=== PATIENT | female | born 1945 | race Caucasian/White ===

== ENCOUNTER 2018-08-11 10:56 | Inpatient (IN) | payer BC ==
[~2018-08-11] VITALS: Ht 157.5 cm; Wt 76.7 kg
[2018-08-11 10:56] VITALS: BP_SYST 154
--- NOTE | 2018-08-11 11:02 | NUR ---
BROUGHT BACK TO BED #8 AND TRIAGED. REPORT GIVEN TO JAMAAL
--- NOTE | 2018-08-11 11:30 | NUR ---
Pt bib family s/p mech. fall c/o body pain.Pt h/o Stage IV lung CA.
[2018-08-11] MEDS ORDERED: NACL 0.9% 1,000 ML IV ONE (11:45)
--- NOTE | 2018-08-11 12:00 | NUR ---
ER at bedside examining patient.
[2018-08-11 12:21] LABS: ANION GAP 11 (5-15); CALCIUM 9.7 mg/dL (8.4-11.0); CHLORIDE 93 mmol/L (98-107); CREATININE 0.84 mg/dL (0.55-1.30); GLUCOSE 216 mg/dL (70-99); POTASSIUM 4.6 mmol/L (3.5-5.1); SODIUM SERUM 126 mmol/L (136-145); UREA NITROGEN, BLOOD 31 mg/dL (8-21)
[2018-08-11 12:27] LABS: ALANINE AMINOTRANSFERASE 16 U/L (12-78); ALBUMIN 2.1 g/dL (3.4-4.8); ASPARTATE AMINOTRANSFERASE 17 U/L (10-37); TOTAL BILIRUBIN 0.4 mg/dL (0.0-1.0)
[2018-08-11] MEDS ORDERED: MORPHINE 4 MG/ML INJ. SYRINGE IVP ONE (12:45)
[2018-08-11] MEDS ORDERED: ONDANSETRON HCL 4 MG/2 ML VIAL IVP ONE (12:45)
[2018-08-11 12:49] LABS: BASOPHILS % (AUTO) 0.2 % (0.0-2.0); EOSINOPHILS # (AUTO) 0.2 K/uL (0.0-0.4); EOSINOPHILS % (AUTO) 1.5 % (0.0-4.0); HEMATOCRIT 28.5 % (36-48); HEMOGLOBIN 9.1 g/dL (12.0-16.0); LYMPHOCYTES # (AUTO) 0.4 K/uL (1.0-5.5); LYMPHOCYTES % (AUTO) 2.5 % (20.5-51.5); MEAN CORPUSCULAR HEMOGLOBIN 27 pg (27-31); MEAN CORPUSCULAR HGB CONC 32 % (32-36); MEAN CORPUSCULAR VOLUME 83 fL (79.0-98.0); MONOCYTES # (AUTO) 0.7 K/uL (0.0-1.0); MONOCYTES % (AUTO) 4.6 % (1.7-9.3); NEUTROPHILS # (AUTO) 13.9 K/uL (1.8-7.7); NEUTROPHILS % (AUTO) 91.2 % (40.0-70.0); PLATELET COUNT (AUTO) 401 K/uL (130-430); RED BLOOD CELL COUNT(AUTO) 3.44 MIL/uL (4.2-6.2); RED CELL DISTRIBUTION WIDTH 19.2 % (9.0-15.0); WHITE BLOOD COUNT (AUTO) 15.3 K/uL (4.8-10.8)
[2018-08-11] MEDS ORDERED: PIPERACILLIN/TAZO 3.375 GM in NS 50 ML IV ONE (13:00)
--- NOTE | 2018-08-11 13:00 | NUR ---
urine collected via straight cath.
[2018-08-11] MEDS ORDERED: PIPERACILLIN/TAZOBACTAM 3.375 GM/VIAL (ZOSYN) IV ONE (13:57)
[2018-08-11] MEDS: NACL 0.9% 1,000 ML IV SCH (14:00)
--- NOTE | 2018-08-11 14:30 | NUR ---
Pt resting no acute distress, no v/o pain.
--- NOTE | 2018-08-11 15:40 | NUR ---
at bedside examining patient.
--- NOTE | 2018-08-11 16:30 | NUR ---
Patient will be admitted to care of Vin Clarke. Admitted to Telemetry unit. Will go to room 105A. Belongings list completed. Summary report printed. Report will be given at bedside.
--- NOTE | 2018-08-11 16:47 | NUR ---
CONSULTATION PAGED REASON FOR CONSULTATION:LUNG CANCER WAS CONSULT CALLED?Y PERSON WHO WAS NOTIFIED:DAVID CONSULTING PHYSICIAN:MACI ACUÑA ECONOMIST RESEARCH ASSISTANT SPECIALTY:PULMONARY ECONOMIST RESEARCH ASSISTANT PHONE NUMBER:[phone] ORDERING PHYSICIAN:KALIE SINGH
--- NOTE | 2018-08-11 16:52 | NUR ---
ADMISSION NOTE Received patient from ER via tressa, received report from JAMAAL CANALES. Patient admitted with diagnosis of LUNG CA. Patient oriented to hospital routine, call light, toileting and safety-patient verbalized understanding.
[2018-08-11] MEDS ORDERED: VANCOMYCIN HCL 1,250 MG in NS 250 ML IV SCH (17:00)
[2018-08-11 17:09] VITALS: BP_SYST 94
--- NOTE | 2018-08-11 17:31 | NUR ---
Pt states no pain at this time or distress.
[2018-08-11 17:47] LABS: BILIRUBIN,URINE NEGATIVE (NEGATIVE); CLARITY/URINE CLOUDY (CLEAR); COLOR,URINE YELLOW (YELLOW); GLUCOSE,URINE NEGATIVE (NEGATIVE); KETONES,URINE TRACE (NEGATIVE); LEUKOCYTE ESTERASE ,URINE TRACE (NEGATIVE); NITRITE, URINE POSITIVE (NEGATIVE); PH,URINE 5.5 (5.0-8.0); PROTEIN URINE NEGATIVE (NEGATIVE); UROBILINOGEN,URINE 0.2 (0.2-1.0)
[2018-08-11 17:49] LABS: BLOOD, URINE TRACE (NEGATIVE)
[2018-08-11] MEDS ORDERED: BACL10TA PO (17:52)
[2018-08-11] MEDS ORDERED: SERT50TA12 PO (17:52)
[2018-08-11] MEDS ORDERED: ONDA4TAB5 PO (17:52)
[2018-08-11] MEDS ORDERED: HYDR-3606 PO (17:52)
[2018-08-11] MEDS ORDERED: FAMO40TA7 PO (17:52)
[2018-08-11] MEDS ORDERED: DEC4 PO (17:52)
[2018-08-11] MEDS ORDERED: SIMV40TA5 PO (17:52)
[2018-08-11] MEDS ORDERED: UMEC1BLS IH (17:52)
[2018-08-11] MEDS ORDERED: GLU500 PO (17:52)
[2018-08-11] MEDS ORDERED: FENO200C PO (17:52)
[2018-08-11] MEDS ORDERED: FOLI-43 PO (17:52)
[2018-08-11] MEDS ORDERED: LISI-209 PO (17:52)
[2018-08-11] MEDS: PIPERACILLIN/TAZO 3.375/DEX-IS 50 ML IV SCH (17:53)
[2018-08-11 17:56] LABS: BACTERIA,URINE MANY /HPF (None Seen); MUCUS,URINE None Seen /LPF (None Seen); RBC,URINE 0-3 /HPF (0-3)
[2018-08-11] MEDS ORDERED: ONDANSETRON HCL 4 MG/2 ML VIAL IVP PRN (18:15)
[2018-08-11] MEDS ORDERED: IPRATROPIUM/ALBUTEROL SULFATE 3 ML AMPUL.NEB (DUONEB) INH PRN (18:15)
[2018-08-11] MEDS ORDERED: MORPHINE 2 MG/ML INJ. SYRINGE ONE (18:15)
[2018-08-11] MEDS ORDERED: ONDANSETRON HCL 4 MG/2 ML VIAL ONE (18:16)
[2018-08-11 18:51] VITALS: BP_SYST 94
[2018-08-11 20:20] VITALS: BP_SYST 115
--- NOTE | 2018-08-11 20:20 | NUR ---
INITIAL NOTES: BEDSIDE REPORT DONE WITH AM RN. PATIENT IN BED WITH EYES CLOSE,BREATHING PATTERN REGULAR.. PATIENT HAS BEEN DROWSY SINCE ADMISSION BUT DID OPEN HER EYES WHEN CALLED. IVPB INFUSING VIA RT.UPPER CHEST LELAND CATH ..SINUS PALE LOOKING.ROOM AIR.CALL LIGHT WITHIN REACH. BED IN LOW POSITION. WILL MONITOR CLOSELY.
--- NOTE | 2018-08-11 20:25 | NUR ---
SATURATION ON ROOM AIR 88%. OXYGEN 2 LITERS PER N/C ,SAT .WENT UP TO 94%.THIS TIME.
--- NOTE | 2018-08-11 21:20 | NUR ---
URINE INCONTINENT: KRYSTA CARE RENDERED. SKIN INTACT.
--- NOTE | 2018-08-12 00:20 | NUR ---
ROUNDS: AWAKENED. DENIES PAIN .KEPT DRY AND COMFORTABLE.
[2018-08-12 00:22] VITALS: BP_SYST 106
[2018-08-12] MEDS: PIPERACILLIN/TAZO 3.375/DEX-IS 50 ML IV SCH ×4 (00:24→17:38)
--- NOTE | 2018-08-12 01:45 | NUR ---
KRYSTA CARE DONE DUE TO URINE INCONTINENT.
--- NOTE | 2018-08-12 03:00 | NUR ---
ROUNDS: PATIENT CONTINUE TO SLEEP. NO DISTRESS.
--- NOTE | 2018-08-12 05:00 | NUR ---
URINE INCONTINENT. KRYSTA CARE DONE.
--- NOTE | 2018-08-12 06:50 | NUR ---
CLOSING: NO ACUTE CARDIOPULMONARY DISTRESS. ALL NEEDS ATTENDED. ASKED PATIENT 3X IF HAS PAIN ,DENIES PAIN.KRYSTA CARE DONE AND TURNED TO SIDES. IVF INFUSING WELL. MORE AWAKE THIS MORNING.
--- NOTE | 2018-08-12 06:59 | NUR ---
Nutrition Update Jimenez Scale 14 noted. Pt admitted for Lung Cancer, Pneumonia Diet: regular BMI: 31.1 kg/m2 RD to follow per nutrition care standards.
--- NOTE | 2018-08-12 07:30 | NUR ---
AM ROUNDS: PATIENT LYING ON THE BED.AWAKE,ALERT AND ORIENTED X 3-4.PALE LOOKING.IVF ON GOING AT RIGHT CHEST,INTACT. O2 2L/NC,GOOD SATURATION.NO DISTRESS. CONTINUE TO MONITOR.
[2018-08-12] MEDS: PANTOPRAZOLE SODIUM 40 MG TAB PO SCH (07:34)
[2018-08-12 08:21] VITALS: BP_SYST 116
[2018-08-12 08:39] LABS: BASOPHILS % (AUTO) 0.1 % (0.0-2.0); EOSINOPHILS # (AUTO) 0.2 K/uL (0.0-0.4); EOSINOPHILS % (AUTO) 1.7 % (0.0-4.0); HEMATOCRIT 24.6 % (36-48); HEMOGLOBIN 7.8 g/dL (12.0-16.0); LYMPHOCYTES # (AUTO) 0.4 K/uL (1.0-5.5); LYMPHOCYTES % (AUTO) 3.6 % (20.5-51.5); MEAN CORPUSCULAR HEMOGLOBIN 26 pg (27-31); MEAN CORPUSCULAR HGB CONC 32 % (32-36); MEAN CORPUSCULAR VOLUME 83 fL (79.0-98.0); MONOCYTES # (AUTO) 0.7 K/uL (0.0-1.0); MONOCYTES % (AUTO) 6.3 % (1.7-9.3); NEUTROPHILS % (AUTO) 88.3 % (40.0-70.0); PLATELET COUNT (AUTO) 306 K/uL (130-430); RED BLOOD CELL COUNT(AUTO) 2.96 MIL/uL (4.2-6.2); RED CELL DISTRIBUTION WIDTH 18.8 % (9.0-15.0); WHITE BLOOD COUNT (AUTO) 11.4 K/uL (4.8-10.8)
[2018-08-12 08:43] LABS: PROTHROMBIN TIME 10.6 SECS (9.5-12.5)
[2018-08-12 08:52] LABS: ALANINE AMINOTRANSFERASE 11 U/L (12-78); ALBUMIN 1.8 g/dL (3.4-4.8); ANION GAP 9 (5-15); ASPARTATE AMINOTRANSFERASE 12 U/L (10-37); CALCIUM 9.4 mg/dL (8.4-11.0); CHLORIDE 95 mmol/L (98-107); CREATININE 0.69 mg/dL (0.55-1.30); GLUCOSE 134 mg/dL (70-99); POTASSIUM 4.3 mmol/L (3.5-5.1); SODIUM SERUM 128 mmol/L (136-145); TOTAL BILIRUBIN 0.3 mg/dL (0.0-1.0); UREA NITROGEN, BLOOD 19 mg/dL (8-21)
[2018-08-12] MEDS: ENOXAPARIN SODIUM 40 MG/0.4 ML SYRINGE SUBCUT SCH (09:33)
[2018-08-12] MEDS: NACL 0.9% 1,000 ML IV SCH ×2 (10:00→21:01)
--- NOTE | 2018-08-12 10:00 | NUR ---
RADIOLOGY: TO CT CHEST WITHOUT CONTRAST PER JOHANN.
[2018-08-12] MEDS: VANCOMYCIN HCL 1 GM/NS PREMIX 250 ML IV SCH ×2 (10:47→22:17)
[2018-08-12 11:39] VITALS: BP_SYST 122
--- NOTE | 2018-08-12 12:40 | NUR ---
RN ROUNDS: PATIENT IN THE ROOM AND EATING LUNCH DURING ROUNDS. NO NEEDS THIS TIME.CALL LIGHT WITH IN REACH. BED LOCKED AT LOWEST POSITION.
--- NOTE | 2018-08-12 14:45 | NUR ---
Dc tele: Downgrade patient to medical surgical as ordered.
[2018-08-12 15:47] VITALS: BP_SYST 109
--- NOTE | 2018-08-12 16:01 | NUR ---
rn rounds: Resting. No distress.Call light with in reach.Bed locked at lowest position.Bed alarm on.
--- NOTE | 2018-08-12 17:44 | NUR ---
PAGED DR. HAYNES DIALED [phone] SPOKE TO MARIANNE
--- NOTE | 2018-08-12 17:55 | NUR ---
new order: Spoke with Dr. Gray with orders give glucerna boost tid in between meals.
[2018-08-12] MEDS: MORPHINE 2 MG/ML INJ. SYRINGE IVP PRN (18:14)
--- NOTE | 2018-08-12 18:14 | NUR ---
Morphine: Patient c/o lower back pain and due iv Morphine given per request. No adverse reactions noted.
--- NOTE | 2018-08-12 18:30 | NUR ---
Krishan Paged: Called [facility],telephone surveyor Dr. Acosta and left message c/o [facility] exchange re:Ct chest w/o contrast results.
--- NOTE | 2018-08-12 19:16 | NUR ---
Closing Notes: Endorsed to night nurse Carmenza.Comfortable this time. No appetite.Got an order from for supplement per son's request.With orders give Glucerna tid with meals. Call light with in reach.Bed locked at lowest position. Bed alarm on.
--- NOTE | 2018-08-12 20:00 | NUR ---
INITIAL NOTES: PATIENT IN BED AWAKE,ORIENTED X2 FORGETFUL OF TIME.FAMILIES AT BEDSIDE. DISCUSSED PLAN OF CARE TO PATIENT AND FAMILIES.FAMILY ASKED RESULTS OF CT SCAN NOT DISCUSSED DUE TO HIPPA WITH UNDERSTANDING. IVF INFUSING AT 50ML/HR VIA RT. UPPER CHEST POR A CATH. DRESSING DRY AND INTACT.ON O2 2 LITERS PER N/C. INCONTINENT OF URINE. WILL CHANGE SOON. PALE LOOKING, SKIN DRY, WARM AND INTACT.
[2018-08-12 20:30] VITALS: BP_SYST 119
--- NOTE | 2018-08-12 21:35 | NUR ---
HYGIENE WITH KRYSTA CARE DONE DUE TO URINE WIT SMEAR LOOSE STOOL. Z GAURD CREAM APPLIED AFTER. OFFERED PAIN MEDICATION ,BUT REFUSE.
--- NOTE | 2018-08-13 00:15 | NUR ---
DUE IVPB INFUSED. HAS URINE INCONTINENT. KRYSTA SKIN CARE DONE.
[2018-08-13] MEDS: PIPERACILLIN/TAZO 3.375/DEX-IS 50 ML IV SCH ×5 (00:32→23:32)
[2018-08-13 00:36] VITALS: BP_SYST 111
[2018-08-13] MEDS: MORPHINE 2 MG/ML INJ. SYRINGE IVP PRN ×3 (00:45→21:50)
--- NOTE | 2018-08-13 00:45 | NUR ---
PAIN: HAS BACK PAIN ,AGREED TO HAVE MORPHINE 2MG IV GIVEN ORDERED.
--- NOTE | 2018-08-13 03:30 | NUR ---
PATIENT RESTING WITH EYES CLOSE. ON OXYGEN. IVF INFUSING WELL.
--- NOTE | 2018-08-13 05:30 | NUR ---
HAS INCONTINENT OF URINE. HYGIENE WITH KRYSTA CARE RENDERED BY RF TEST TECHNICIAN.
[2018-08-13] MEDS: PANTOPRAZOLE SODIUM 40 MG TAB PO SCH (06:25)
--- NOTE | 2018-08-13 06:55 | NUR ---
CLOSING: NO CARDIOPULMONARY DISTRESS. ALL NEEDS ATTENDED. MORPHINE IV GIVEN FOR BACK PAIN WITH RELIEF. STILL ON OXYGEN. CALL LIGHT WITHIN REACH.
[2018-08-13 07:24] LABS: ALANINE AMINOTRANSFERASE 10 U/L (12-78); ALBUMIN 1.6 g/dL (3.4-4.8); ANION GAP 7 (5-15); ASPARTATE AMINOTRANSFERASE 11 U/L (10-37); CALCIUM 8.9 mg/dL (8.4-11.0); CHLORIDE 95 mmol/L (98-107); CREATININE 0.61 mg/dL (0.55-1.30); GLUCOSE 131 mg/dL (70-99); POTASSIUM 3.9 mmol/L (3.5-5.1); SODIUM SERUM 127 mmol/L (136-145); TOTAL BILIRUBIN 0.3 mg/dL (0.0-1.0); UREA NITROGEN, BLOOD 10 mg/dL (8-21)
[2018-08-13 07:28] LABS: BASOPHILS % (AUTO) 0.2 % (0.0-2.0); EOSINOPHILS # (AUTO) 0.2 K/uL (0.0-0.4); HEMATOCRIT 23.1 % (36-48); HEMOGLOBIN 7.5 g/dL (12.0-16.0); LYMPHOCYTES # (AUTO) 0.4 K/uL (1.0-5.5); LYMPHOCYTES % (AUTO) 4.1 % (20.5-51.5); MEAN CORPUSCULAR HEMOGLOBIN 27 pg (27-31); MEAN CORPUSCULAR HGB CONC 32 % (32-36); MEAN CORPUSCULAR VOLUME 83 fL (79.0-98.0); MONOCYTES # (AUTO) 0.7 K/uL (0.0-1.0); MONOCYTES % (AUTO) 6.5 % (1.7-9.3); NEUTROPHILS # (AUTO) 9.2 K/uL (1.8-7.7); NEUTROPHILS % (AUTO) 87.2 % (40.0-70.0); PLATELET COUNT (AUTO) 279 K/uL (130-430); RED CELL DISTRIBUTION WIDTH 19.2 % (9.0-15.0); WHITE BLOOD COUNT (AUTO) 10.5 K/uL (4.8-10.8)
--- NOTE | 2018-08-13 07:50 | NUR ---
opening note patient is resting in bed, A&Ox4, assessment completed, educated on plan of care and call light system, patient verbalized understanding, central line dressing intact with fluids running with no signs of infiltration, patient complaining of pain, no other needs at this time, fall/safety precautions in place, on 2L nasal cannula.
[2018-08-13] MEDS: ENOXAPARIN SODIUM 40 MG/0.4 ML SYRINGE SUBCUT SCH (08:53)
[2018-08-13 09:30] VITALS: BP_SYST 114
[2018-08-13] MEDS: VANCOMYCIN HCL 1 GM/NS PREMIX 250 ML IV SCH ×2 (09:32→21:43)
--- NOTE | 2018-08-13 10:52 | NUR ---
rounds patient is resting in bed, visitors at the bedside, no signs of distress, offered a cup of ice, no other needs at this time, fall/safety precautions in place.
[2018-08-13 11:41] VITALS: BP_SYST 105
--- NOTE | 2018-08-13 12:55 | NUR ---
rounds patient is resting in bed, patient states that pain is at a tolerable level right now, no signs of distress, no other needs addressed at this time, fall and safety precautions in place.
--- NOTE | 2018-08-13 14:40 | NUR ---
rounds patient is resting in bed, patient states pain is at a tolerable state, no needs addressed at this time, fall/safety precautions.
[2018-08-13 16:06] VITALS: BP_SYST 110
--- NOTE | 2018-08-13 16:29 | NUR ---
rounds patient is resting in bed, eyes closed breathing easy and nonlabored, 2L nasal cannula on, no other needs at this time, fall/safety precautions in place.
--- NOTE | 2018-08-13 16:35 | NUR ---
Dietitian Recommendations * Recommend regular diet, Glucerna BID (ONS provides an additional 700 kcal/day and 20 gm protein/day) LP, RD Please refer to Nutrition Assessment for details.
--- NOTE | 2018-08-13 18:58 | NUR ---
closing note patient is resting in bed, eyes closed breathing easy and nonlabored, 2L nasal cannula on, no other needs at this time, fall/safety precautions in place, no other needs at this time, sons left for the day, will endorse report to noc shift nurse to continue with care, follow up with when next prn pain meds are due, titrate O2 to keep O2 sat above 92, apply z-guard as needed for simon redness.
--- NOTE | 2018-08-13 19:05 | NUR ---
OPENING NOTES: BEDSIDE REPORT DONE. PATIENT IN BED WITH EYES CLOSE. BREATHING PATTERN REGULAR. IVF INFUSING WELL. CALL LIGHT WITHIN REACH. BED IN LOW POSITION. WILL MONITOR CLOSELY.
--- NOTE | 2018-08-13 21:45 | NUR ---
urine incontinent: simon and skin care done. no acute distress.
--- NOTE | 2018-08-13 23:30 | NUR ---
CHECKED IF HAS URINE INCONTINENT, DRY.
[2018-08-13] MEDS: NACL 0.9% 1,000 ML IV SCH (23:32)
[2018-08-14 01:20] VITALS: BP_SYST 122
--- NOTE | 2018-08-14 02:30 | NUR ---
URINE INCONTINENT: UNDER PADS CHANGED. SKIN CARE DONE.
--- NOTE | 2018-08-14 05:30 | NUR ---
HYGIENE: KRYSTA AND SKIN CARE DONE. IVF INFUSING WELL.
[2018-08-14] MEDS: HYDROcodone/ACETAMIN 5-325 MG TAB (NORCO/ VICODIN) PO PRN (05:39)
[2018-08-14] MEDS: PIPERACILLIN/TAZO 3.375/DEX-IS 50 ML IV SCH ×3 (05:40→17:48)
--- NOTE | 2018-08-14 05:40 | NUR ---
PAIN: MEDICATED WITH NORCO PO FOR BACK PAIN LEVEL OF 6/10.
--- NOTE | 2018-08-14 06:45 | NUR ---
CLOSING: ALL NEEDS WERE ATTENDED. NO ACUTE CARDIOPULMONARY DISTRESS. REMAINS TACHYCARDEIC. RR 20 22/MIN. MEDICATED WITH MORPHINE IV AND NORCO PO. FAIRLY CONTROLLED. SKIN CARE WERE DONE.SAFETY MEASURES IMPLEMENTED. CALL LIGHT AT NEAR BY. BED IN LOW POSITION.
[2018-08-14 06:54] LABS: ANION GAP 9 (5-15); CALCIUM 8.7 mg/dL (8.4-11.0); CHLORIDE 96 mmol/L (98-107); CREATININE 0.59 mg/dL (0.55-1.30); GLUCOSE 163 mg/dL (70-99); POTASSIUM 3.8 mmol/L (3.5-5.1); SODIUM SERUM 130 mmol/L (136-145); UREA NITROGEN, BLOOD 9 mg/dL (8-21)
[2018-08-14 07:45] LABS: BASOPHILS # (AUTO) 0.1 K/uL (0.0-0.2); BASOPHILS % (AUTO) 0.5 % (0.0-2.0); EOSINOPHILS # (AUTO) 0.2 K/uL (0.0-0.4); EOSINOPHILS % (AUTO) 1.5 % (0.0-4.0); LYMPHOCYTES # (AUTO) 0.4 K/uL (1.0-5.5); MEAN CORPUSCULAR HEMOGLOBIN 27 pg (27-31); MEAN CORPUSCULAR HGB CONC 33 % (32-36); MEAN CORPUSCULAR VOLUME 83 fL (79.0-98.0); MONOCYTES # (AUTO) 0.6 K/uL (0.0-1.0); MONOCYTES % (AUTO) 5.1 % (1.7-9.3); NEUTROPHILS # (AUTO) 9.8 K/uL (1.8-7.7); NEUTROPHILS % (AUTO) 88.9 % (40.0-70.0); PLATELET COUNT (AUTO) 268 K/uL (130-430); RED BLOOD CELL COUNT(AUTO) 2.58 MIL/uL (4.2-6.2); RED CELL DISTRIBUTION WIDTH 18.9 % (9.0-15.0)
[2018-08-14 07:50] LABS: HEMATOCRIT 21.4 % (36-48)
--- NOTE | 2018-08-14 07:56 | NUR ---
Opening Note received bedside SBAR report from warehouse supervisor 3rd shift RN, patient resting in bed, no acute distress noted, room close to nurses station, educated patient on use of call light and asked to call for assistance, patient verbalized understanding, call light in reach, bed in low and locked position, bed alarm on.
[2018-08-14 08:00] VITALS: BP_SYST 97
[2018-08-14] MEDS: PANTOPRAZOLE SODIUM 40 MG TAB PO SCH (08:35)
[2018-08-14] MEDS: ENOXAPARIN SODIUM 40 MG/0.4 ML SYRINGE SUBCUT SCH (08:36)
[2018-08-14] MEDS: MORPHINE 2 MG/ML INJ. SYRINGE IVP PRN ×2 (08:42→19:18)
--- NOTE | 2018-08-14 08:51 | NUR ---
Physician Rounds Dr. De Leon at bedside examining patient.
--- NOTE | 2018-08-14 08:55 | NUR ---
Physician Rounds Rounds with Dr. Chisholm, informed him of critical lab this morning hct 21.4 and hgb 7.0, no new orders.
--- NOTE | 2018-08-14 08:59 | NUR ---
Nutrition Note Nutrition Consult received for WOUND 08/14/18 0606. Pt was seen and assessed by RD on 08/13/18. Please refer to Nutrition Assessment for details.
--- NOTE | 2018-08-14 10:47 | NUR ---
RN Rounds patient resting in bed, no acute distress noted, patient reports pain is controlled at this time, patient family at bedside.
[2018-08-14] MEDS: VANCOMYCIN HCL 1 GM/NS PREMIX 250 ML IV SCH ×2 (11:04→21:28)
[2018-08-14 12:00] VITALS: BP_SYST 151
--- NOTE | 2018-08-14 12:31 | NUR ---
RN Rounds patient sleeping in bed, respirations even and unlabored, no acute distress noted, patients son Eagle at bedside.
[2018-08-14 13:05] VITALS: BP_SYST 108
--- NOTE | 2018-08-14 14:12 | NUR ---
Physician Rounds Dr. Souza at bedside speaking with patient, Dr. Souza spoke with patients son Eagle on the phone and discussed the plan of care for the patient.
--- NOTE | 2018-08-14 14:24 | NUR ---
Blood Transfusion educated patient on signs and symptoms of blood transfusion reaction, patient verbalized understanding, consent signed and in patients chart, verified blood with second RN, blood transfusion started at this time, patient tolerating well, no acute distress noted, RN at bedside for first 15 minutes of transfusion.
--- NOTE | 2018-08-14 14:40 | NUR ---
Blood transfusion first 15 minutes of blood transfusion completed at this time, patient denies any chest pain, chills, or shortness of breath, no acute distress noted, no signs and symptoms of a transfusion reaction noted, call light in reach.
--- NOTE | 2018-08-14 14:50 | NUR ---
WOUND EVALUATION: Late note for 145 secondary to patient care. Wound Consult received from Dr. Enio Joseph. Thank you, Dr. Joseph, for the consult. Patient received in a Robert Bed with an IsoFlex CESARIO mattress, awake, alert, oriented. Patient is able to turn in bed with minimal assist. Jimenez Score is a 14. Past Medical History: Adeno-Carcinoma Lung Cancer history of recurrent pleural effusions. Recent Labs: WBC 11.0, RBC 2.58, hemoglobin 7.0, hematocrit 21.4, sodium 130, chloride 96, glucose 163, albumin 1.6. Blood culture results 2 in progress. Urine culture results negative. Intrinsic factors that delay wound healing: Adeno-Carcinoma Lung Cancer, hypoalbuminemia. Extrinsic factors that delay wound healing: Decreased mobility. Wound Assessment: 1. Upper Buttock: Intertrigo with non-intact skin, present on admission. Wound bed has 100% dull red tissue, and is in a linear shape, horizontal to fold area. No odor, no drainage. Renuka-wound intact. Wound measures 1.8 cm x 0.4 cm. 2. Left Proximal Posterior Thigh, at fold area of Buttock: Intertrigo with non-intact skin, present on admission. Wound bed has 100% dull red tissue, and is in a linear shape, horizontal to fold area. No odor, no drainage. Renuka-wound intact. Wound measures 0.5 cm x 2.7 cm. Recommend: Cleanse wounds with normal saline. Apply moisture barrier cream to wounds and renuka-wounds. Cover with foam dressing. Perform wound care daily, and as needed for dressing soiling or dislodgement. Also recommend: Reposition patient side to side only every 2 hours with pillow support, and off-load pressure areas with pillows for pressure re-distribution. Offload, elevate and float bilateral heels with pillows. Perform skin care and monitor skin integrity Q shift. Use moisture barrier cream on buttocks and other moisture susceptible areas QID and as needed for soiling. Maintain patient on a low air-loss mattress. Addendum: 08/14/18 at 1619 by Gavin Chávez RN Addendum: Treatment for Wound 2 should be: Recommend: Cleanse wound with normal saline. Apply moisture barrier cream to wound and renuka-wound. Perform site care qid, and as needed for soiling.
--- NOTE | 2018-08-14 15:00 | NUR ---
Wound care educated patient on purpose and procedure for wound care, patient verbalized understanding, wound care completed, patient tolerated well, no acute distress noted, patient denies any pain during or after wound care, see MST shift assessment for wound care.
--- NOTE | 2018-08-14 16:01 | NUR ---
CONSULT REASON FOR CONSULT: LUNG CANCER PERSON I SPOKE WITH: W[facility]ACE CONSULTING PHYSICIAN: DR. ZELAYA VARNISHING UNIT TOOL SETTER PHONE NUMBER: [phone] ORDERING PHYSICIAN: DR. STEVENS Addendum: 08/14/18 at 1657 by Rosa Lewis VT/ SPOKE WITH KYE GONSALEZ
--- NOTE | 2018-08-14 16:03 | NUR ---
RN Rounds patient resting in bed, respirations even and unlabored, no signs or symptoms of blood transfusion reaction, patient denies any chest pain or shortness of breath, no acute distress noted.
--- NOTE | 2018-08-14 16:55 | NUR ---
Blood Transfusion Complete blood transfusion complete at this time, 1 unit of PRBCs infused, patient tolerated well, patient denies any chest pain or shortness of breath, no adverse transfusion reaction noted, no acute distress noted, patient resting in bed, patient reports pain is controlled at this time, patients sons at bedside.
--- NOTE | 2018-08-14 17:54 | NUR ---
RN Rounds patient reports pain is controlled at this time, patients sons at bedside, no acute distress noted, patient requesting jello, provided patient with jello, no additional needs at this time.
--- NOTE | 2018-08-14 18:43 | NUR ---
1L nasal cannula per Dr. Souza, check to see patients O2 Sat off of supplemental O2, patient's O2 Sat 89% on room air, patient placed back on 1L nasal cannula, O2 Sat 93% on 1L nasal cannula, patient denies any shortness of breath, no acute distress noted, patients sons at bedside.
[2018-08-14 19:00] VITALS: BP_SYST 116
--- NOTE | 2018-08-14 19:00 | NUR ---
change of shift.pt.presents quiescent affect;calm.pt's family;sons@bedside.pt.presents central line;rt.svc.intact;patent iv fluids infusing.pt.is incontinent;bladder/bowel.pt.presents o2 therapy:o2 administered@1l/min via nasal cannulae.call light/telephone w/in the reach of the pt.pt.had requested medication;pain.i am to review the emar;med-list.i have apprised the pt./sons.
--- NOTE | 2018-08-14 19:14 | NUR ---
Closing Note bedside SBAR report given to receiving RN, patient resting in bed, respirations even and unlabored, no acute distress noted, IV fluid infusing well, patients son's at bedside, educated patient on use of call light and asked to call for assistance, patient verbalized understanding, call light in reach, bed in low and locked position, bed alarm on, care endorsed to shift foreman RN.
--- NOTE | 2018-08-14 19:20 | NUR ---
i have administered morphine;2mg ivp.via the central line;intact;patent.i am to f/u re;pain medication efficacy per pain mgx protocol.
[2018-08-14 20:00] VITALS: BP_SYST 116
--- NOTE | 2018-08-14 20:00 | NUR ---
pt.assessed.v/s assd.values w/in normal limits.pt.assessed for cleanliness.pt.repositioned.i have assessed the o2-sat%=96%@1l/m,in vioa nasal cannulae.i have assessed the central line;intact;patent;iv fluids infusing.general status stable.respiratory status stabl;e;unlabored call light/telephone placed w/in the reach of the pt.
--- NOTE | 2018-08-14 22:00 | NUR ---
pt.assessed.pt.assessed for cleanliness.pt.repositioned.o2-sat%=96%.nasal cannulae placed correctly.i have assessed the central line;intact;patent.iv fluids infusing.general status stable.respiratory status stable.unlabored call light/telephone placed w/in the reach of the pt.
[2018-08-15] VITALS (7 sets, daily range): BP systolic 106–139
--- NOTE | 2018-08-15 | NUR ---
pt.assessed/v/s assessed;values w/in normal, limits.pt.presents no c/o pain,nausea.pt.assessed for cleanliness. pt.repositioned.central line assessed ;intact;patent;iv fluids infusing.o2-sat%=96%general status stable. respiratory status stable.call light/telephone placed w/in the reach of the pt.
[2018-08-15] MEDS: PIPERACILLIN/TAZO 3.375/DEX-IS 50 ML IV SCH ×5 (00:09→23:30)
--- NOTE | 2018-08-15 02:00 | NUR ---
pt.assessed.pt.assessed for cleanliness.pt.repositioned.i have assessed the central line;intact;patent.iv fluids infusing. general status stable.respiratory status stable;unlabored.call; light/telephone placed w/in the reach of the pt.
--- NOTE | 2018-08-15 04:00 | NUR ---
pt.assessed.pt.assessed for cleanliness.pt.repositioned.pt.presents quiescent affect;calm.somnolent,.i have applied the blanket upon the pt.o20sat%=96%@1l./min via nasal cannulae.general status stable.respiratory.status stable;unlabored.i have assessed the central line;intact;patent;iv fluids infusing.call light/telephone placed w/in the reach of the pt.
[2018-08-15] MEDS: PANTOPRAZOLE SODIUM 40 MG TAB PO SCH (05:07)
--- NOTE | 2018-08-15 06:33 | NUR ---
pt.assessed.pt.presents quiescent affect;calm,somnolent.pt.assessed for cleanliness.pt.repositioned.i have assessed the central line;intact;patent;iv fluids infusing.i have administered the unasyn;abx.ivpb 0600a dose.i have administered protonix;po. general status stable.respiratory status stable.02-sat%=96%call,light/telephone paced w/in the reach of the pt.i inquired if the pt./presents requests,pt.stated no,she is fine,she is not cold;i have applied the blankets upon the pt.i inquired if the pt. presents pain,.pt.stated no she is comfortable.
[2018-08-15 06:34] LABS: BASOPHILS % (AUTO) 0.3 % (0.0-2.0); EOSINOPHILS # (AUTO) 0.2 K/uL (0.0-0.4); EOSINOPHILS % (AUTO) 1.5 % (0.0-4.0); HEMATOCRIT 26.2 % (36-48); HEMOGLOBIN 8.5 g/dL (12.0-16.0); LYMPHOCYTES # (AUTO) 0.4 K/uL (1.0-5.5); LYMPHOCYTES % (AUTO) 4.3 % (20.5-51.5); MEAN CORPUSCULAR HEMOGLOBIN 27 pg (27-31); MEAN CORPUSCULAR HGB CONC 32 % (32-36); MEAN CORPUSCULAR VOLUME 83 fL (79.0-98.0); MONOCYTES # (AUTO) 0.7 K/uL (0.0-1.0); MONOCYTES % (AUTO) 6.2 % (1.7-9.3); NEUTROPHILS # (AUTO) 9.2 K/uL (1.8-7.7); NEUTROPHILS % (AUTO) 87.7 % (40.0-70.0); PLATELET COUNT (AUTO) 296 K/uL (130-430); RED BLOOD CELL COUNT(AUTO) 3.16 MIL/uL (4.2-6.2); RED CELL DISTRIBUTION WIDTH 17.6 % (9.0-15.0); WHITE BLOOD COUNT (AUTO) 10.5 K/uL (4.8-10.8)
[2018-08-15 06:45] LABS: ANION GAP 7 (5-15); CALCIUM 8.7 mg/dL (8.4-11.0); CHLORIDE 97 mmol/L (98-107); GLUCOSE 158 mg/dL (70-99); POTASSIUM 3.8 mmol/L (3.5-5.1); SODIUM SERUM 130 mmol/L (136-145); UREA NITROGEN, BLOOD 9 mg/dL (8-21)
--- NOTE | 2018-08-15 07:19 | NUR ---
Opening Note received bedside SBAR report from overnight associate RN, patient resting in bed, respirations even and unlabored, no acute distress noted, patient reports pain is controlled at this time, room close to nurses station, educated patient on use of call light and asked to call for assistance, patient verbalized understanding, call light in reach, bed in low and locked position, bed alarm on.
[2018-08-15] MEDS: MORPHINE 2 MG/ML INJ. SYRINGE IVP PRN ×2 (08:45→18:47)
--- NOTE | 2018-08-15 09:48 | NUR ---
Home Health: [facility] will provide home health nursing for medication/hydration teaching and wellness check. Per P.T. evaluation, patient is unable to transfer and ambulate and needs mod/max assist with bed mobility but zeyad Guillermo and Milo decline home health physical therapy at this time. Zeyad Guillermo and Milo also met with On[facility] Dr. Souza yesterday who recommended hospice and they declined hospice at this time. Patient will follow up with Oncologist for immunotherapy. Patient will be referred to [facility]. Yissel Kendall, HCP Core Blower Operator [phone]
[2018-08-15] MEDS: ENOXAPARIN SODIUM 40 MG/0.4 ML SYRINGE SUBCUT SCH (09:55)
--- NOTE | 2018-08-15 09:55 | NUR ---
Medication/Education educated patient and patients son Eagle on use and side effects of lovenox, patient and patients son verbalized understanding, patient tolerated medication administration well, no acute distress noted.
[2018-08-15] MEDS: VANCOMYCIN HCL 1 GM/NS PREMIX 250 ML IV SCH ×2 (10:36→20:45)
--- NOTE | 2018-08-15 11:46 | NUR ---
RN Rounds patient resting in bed, patient states that pain is controlled at this time, patient assisted to reposition, patients son at bedside.
--- NOTE | 2018-08-15 12:12 | NUR ---
PT note Attempted to have patient participate with therapy; patient refusing at this time due to low back pain, nursing made aware.
--- NOTE | 2018-08-15 12:34 | NUR ---
Home oxygen/nebs: Home oxygen and nebulizer machine is being arranged. Will have portable oxygen tank delivered at bedside today before discharge, and oxygen concentrator and nebulizer machine to be delivered to home. Provided son's Milo contact number as contact for the [employer] company to coordinate delivery for home. Yissel Kendall, HCP Casing Runner [phone]
--- NOTE | 2018-08-15 13:57 | NUR ---
Wound Care educated patient on purpose and procedure for wound care, patient verbalized understanding, wound care completed, patient tolerated well, patient reports pain is controlled during and after wound care, no acute distress noted, patient repositioned, heels floating.
--- NOTE | 2018-08-15 16:26 | NUR ---
RN Rounds patient resting in bed, respirations even and unlabored, no acute distress noted, patient reports pain is controlled at this time, patients son at the bedside.
--- NOTE | 2018-08-15 17:00 | NUR ---
Spoke with Physician Spoke with Dr. Chisholm, informed him that patients son states that home O2 will not be delivered until later tonight, portable O2 was scheduled to be delivered here to hospital at 1600 and has not arrived, per Dr. Chisholm hold discharge until tomorrow morning.
--- NOTE | 2018-08-15 18:28 | NUR ---
RN Rounds patient resting in bed, respirations even and unlabored on room air, no acute distress noted, patient was able to tolerate glucerna for dinner, denies any nausea, patients son Eagle at bedside.
--- NOTE | 2018-08-15 19:00 | NUR ---
change of shift.pt.presents quiescent affect;calm,family member present.pt.receiving the administration o2-therapy via nasal cannulae.pt.presents central line;iv fluids infusing.pt.presents incontinence bladder/bowel.call light/telephone w/in the reach of the pt.
--- NOTE | 2018-08-15 19:18 | NUR ---
Closing Note bedside SBAR report given to receiving RN, patient resting in bed, respirations even and unlabored on 1L nasal cannula, patient reports pain is controlled at this time, room close to nurses station, patients son Eagle at bedside, educated patient on use of call light and asked to call for assistance, patient verbalized understanding, call light in reach, bed in low and locked position, bed alarm on, care endorsed to night auditor RN.
--- NOTE | 2018-08-15 20:00 | NUR ---
pt.assessed.v/s assessed;values w/in normal limits.pt.receiving the administration;o2 therapy @1l/min via nasal cannulae;hx;copd. pt.presents rt.svc;central line;i have assessed the central line;intact;patent.iv fluids infusing.i inquired if the pt.present requests;pain,nausea.pt.reflected then stated no,she is fine.i have applied blankets;warmed upon the pt.i have provide water to the pt;swallow capacity;function compromised.o2-sat%=94%.general status stable.respiratory status stable;unlabored.call light/ telephone placed w/in the reach of the pt.family@bedside.
--- NOTE | 2018-08-15 21:00 | NUR ---
o2 tank has been delivered to the pt's room.the deliver person stated th son has been presented the demonstration to operate the to2-tank and has signed for the o2-tank.pt.to be d/c home;08/16/18.w/ the o2-therapy.
--- NOTE | 2018-08-15 22:00 | NUR ---
pt.assessed.pt.presents quiescent affect;calm;somnolent.pt.assessed for cleanliness.pt.repositioned.central line assessed;intact;patent;iv fluids infusing.general status stable.respiratory status stable.call light/telephone placed w/in the reach of the pt. i have administered the vancomycin;abx;ivpb:2200p dose.via the central line.
--- NOTE | 2018-08-16 | NUR ---
pt.assessed.v/s assessed;values w/in normal limits.pt.presents no c/o pain,nausea.i have provided water to the pt. swallow capacity;function compromised.pt.assessed for cleanliness;pt.cleaned.pt.repositioned.central line assessed intact;patent.iv fluids infusing.general status stable.respiratory status stable;unlabored.call light/telephone placed w/in the reach of the pt.
--- NOTE | 2018-08-16 02:00 | NUR ---
pt.assessed.pt.assessed for cleanliness.pt.repositioned.central assessed;intact;pt.presents iv fluids.infusing. general status stable.respiratory status stable;unlabored.call light/telephone placed w/in the reach of the pt.
--- NOTE | 2018-08-16 04:00 | NUR ---
pt.assessed.pt.presents quiescent affect;calm,somnolent.pt.assessed for cleanliness.pt.repositioned.i have assessed the central line;intact;patent iv fluids infusing.o2-sat%=94%general status stable.respiratory status stable;unlabored.call light/telephone placed w/in the reach of the pt.
[2018-08-16] MEDS: PANTOPRAZOLE SODIUM 40 MG TAB PO SCH (06:12)
[2018-08-16] MEDS: PIPERACILLIN/TAZO 3.375/DEX-IS 50 ML IV SCH ×2 (06:12→12:56)
--- NOTE | 2018-08-16 06:27 | NUR ---
pt.assessed.pt.assessed for cleanliness.pt.had stated she is cold.i have provided blankets;warmed x2.pt.repositioned.i have administered zosyn;abx;ivpb:0600a dose.general status stable.respiratory status stable;unlabored.i have reapplied the nasal cannulae upon the pt.i have assessed the central line:intact;patent.call light/telephone pace w/in the reach of the pt.
[2018-08-16] MEDS: MORPHINE 2 MG/ML INJ. SYRINGE IVP PRN (06:41)
[2018-08-16 08:00] VITALS: BP_SYST 114
--- NOTE | 2018-08-16 08:00 | NUR ---
opENING NOTES, PT IN BED, PT IS AAOX3, DENIES PAIN. NO SOB, NO RESP DISTRESS. IV ACCESS INTACT AND PATENT. NO REDNESS OR SWELLING IN THE PORTACATH SITE. SAFETY PRECAUTION IN PLACE. CALL LIGHT IN REACH. BED IN LOW POSITION. BED IN LOW POSITION. BED ALARM ON. ENCOURAGED PT TO CALL FOR ASSIST AND PAIN MEDS AND FOR ANY CONCERNS. WILL CONT TO MONITOR PT.
[2018-08-16] MEDS: ENOXAPARIN SODIUM 40 MG/0.4 ML SYRINGE SUBCUT SCH (09:01)
[2018-08-16] MEDS: VANCOMYCIN HCL 1 GM/NS PREMIX 250 ML IV SCH (09:01)
--- NOTE | 2018-08-16 09:45 | NUR ---
PT IN BED, NO SOB, NO C/O PAIN. CALL LIGHT IN REACH. WILL CONT TO MONITOR.
[2018-08-16 11:28] VITALS: BP_SYST 94
--- NOTE | 2018-08-16 11:44 | NUR ---
Pt note Patient and family member refusing therapy at this time. nursing made aware.
--- NOTE | 2018-08-16 11:45 | NUR ---
PT IN BED, NO C/O PAIN. FAMILY AT BEDSIDE. PT AND FAMILY MADE AWARE OF DC ORDER IF U/S OF L ARM IS NEGATIVE.
[2018-08-16] MEDS ORDERED: AMOX-426 PO (12:44)
[2018-08-16] MEDS ORDERED: ALBU2.5V7 INH (12:45)
[2018-08-16] MEDS: HYDROcodone/ACETAMIN 5-325 MG TAB (NORCO/ VICODIN) PO PRN (12:55)
[2018-08-16 13:06] VITALS: BP_SYST 94
--- NOTE | 2018-08-16 13:30 | NUR ---
BRITTON NEEDLE FROM PORTACATH REMOVED ASEPTICALLY AFTER FLUSING WITH 20 CC OF NS. SITE WAS CLEANSE WITH CHLORHEXIDINE AND ALCOHOL WIPES AND ALLOW TO DRY. COVERED WITH STERILE GAUZE AND SECURED WITH LARGE BAND AID. FAMILY AT BEDSIDE.
--- NOTE | 2018-08-16 14:05 | NUR ---
D/C Patient Patient given medication reconciliation form and D/C instructions. Exit Care provided. Patient verbalized understanding. MD discussed with patient the results and treatment provided. Ambulatory with steady gait for discharge to home. Patient in stable condition, ID band removed. IV catheter removed, intact and dressing applied, no active bleeding. Rx for LEVAQUIN, ALBUTEROL given. Patient educated on pain management. All belongings sent with patient.
== END 2018-08-16 14:05 | disposition home health service (06) | DRG 871 ==
LOC: SED 10:56 → STU 13:06 → SMU 08-12 17:27
PROVIDERS: ADMIT Internal Medicine; ATTEND Internal Medicine
PROC: 30233N1 Transfusion of Nonautologous Red Blood Cells into Peripheral Vein, Percutaneous Approach (ICD-10-PCS; principal; 2018-08-14)
DX: A41.9 Sepsis, unspecified organism (principal); J18.9 Pneumonia, unspecified organism; S22.009A Unspecified fracture of unspecified thoracic vertebra, initial encounter for closed fracture; C34.90 Malignant neoplasm of unspecified part of unspecified bronchus or lung; E87.1 Hypo-osmolality and hyponatremia; J90 Pleural effusion, not elsewhere classified; J44.0 Chronic obstructive pulmonary disease with (acute) lower respiratory infection; D64.9 Anemia, unspecified; E11.9 Type 2 diabetes mellitus without complications; W18.30XA Fall on same level, unspecified, initial encounter; E78.5 Hyperlipidemia, unspecified; I10 Essential (primary) hypertension; J44.9 Chronic obstructive pulmonary disease, unspecified; Y93.89 Activity, other specified; Y92.89 Other specified places as the place of occurrence of the external cause; Y99.8 Other external cause status; Z80.3 Family history of malignant neoplasm of breast; Z85.118 Personal history of other malignant neoplasm of bronchus and lung; Z87.891 Personal history of nicotine dependence; Z92.21 Personal history of antineoplastic chemotherapy; Z92.3 Personal history of irradiation
CPT/HCPCS: 36415; 36600; 71045; 71250-TC; 72100-TC; 80048; 80053; 80202-TC; 81000-TC; 82803-TC; 83605; 85025; 85610-TC; 86886; 86900; 86901; 86920; 87040-TC; 87086; 93005; 93971; 96361; 96365; 96375; 97110-GP; 99285; G0378; J1650; J2270; J2405; J2543; J3370; J7030; J7050; P9021

== ENCOUNTER 2018-09-10 20:15 | Inpatient (IN) | payer BC ==
[~2018-09-10] VITALS: Ht 157.5 cm; Wt 76.7 kg
[~2018-09-10 20:15] MED LIST: ALBU2.5V7 INH; AMOX-426 PO; BACL10TA PO; DEC4 PO; FAMO40TA7 PO; FENO200C PO; FOLI-43 PO; GLU500 PO; HYDR-3606 PO; LISI-209 PO; ONDA4TAB5 PO; SERT50TA12 PO; SIMV40TA5 PO; UMEC1BLS IH
[2018-09-10 20:20] VITALS: BP_SYST 87
--- NOTE | 2018-09-10 20:20 | NUR ---
Patient to ER bed 02 to gown for evaluation. Side rails up. Report given to ALLY Rivera.
[2018-09-10] MEDS ORDERED: NACL 0.9% 1,000 ML IV ONE ×2 (20:24→23:15)
--- NOTE | 2018-09-10 20:24 | NUR ---
ER MD Funk at bedside for medical evaluation.
[2018-09-10] MEDS ORDERED: CLINDAMYCIN 300 MG in D5W 50 ML IV ONE (20:30)
[2018-09-10] MEDS ORDERED: NS 1000 ML IV.SOLN IV ONE (20:30)
--- NOTE | 2018-09-10 20:30 | NUR ---
Patient brought into ED due to generalized weakness and hypotension since today. Patient had immune therapy yesterday and sons report that she has been lethargic since then. Patient had a mechanical fall about 1 week ago. Pt has hx of lung cancer. Patient is confused, but able to answer some questions. Patient's oxygen is mid 80s to 90. Patient is on 2L of O2. Will continue to monitor.
--- NOTE | 2018-09-10 20:32 | NUR ---
End of life care decisions discussed with son by Dr. Funk. Opportunity for questions and concerns addressed. Patient's code status is FULL CODE, paperwork completed and placed in chart.
--- NOTE | 2018-09-10 20:33 | NUR ---
Medication reconciliation completed with information provided by son. Any prior medication reconciliation on file was reviewed and corrected.
[2018-09-10 20:44] LABS: WHITE BLOOD COUNT (AUTO) 10.5 K/uL (4.8-10.8)
[2018-09-10] MEDS ORDERED: AMPICILLIN SODIUM/SULBACTAM NA 3 GM in NS 100 ML IV ONE (20:45)
[2018-09-10 20:51] LABS: HEMATOCRIT 30.6 % (36-48); HEMOGLOBIN 10.1 g/dL (12.0-16.0); MEAN CORPUSCULAR HEMOGLOBIN 28 pg (27-31); MEAN CORPUSCULAR HGB CONC 33 % (32-36); MEAN CORPUSCULAR VOLUME 85 fL (79.0-98.0); PLATELET COUNT (AUTO) 399 K/uL (130-430); RED BLOOD CELL COUNT(AUTO) 3.61 MIL/uL (4.2-6.2); RED CELL DISTRIBUTION WIDTH 18.4 % (9.0-15.0)
[2018-09-10] MEDS ORDERED: DEXAMETHASONE SOD PHOSPHATE 10 MG/ML VIAL IVP ONE (21:00)
[2018-09-10 21:07] LABS: INR 1.1 (0.8-1.2); PROTHROMBIN TIME 11.3 SECS (9.5-12.5)
[2018-09-10] MEDS ORDERED: CLINDAMYCIN PHOSPHATE 300 MG/2 ML VIAL ONE (21:10)
[2018-09-10] MEDS ORDERED: AMPICILLIN SODIUM/SULBACTAM NA 3 GM VIAL ONE (21:10)
[2018-09-10] MEDS ORDERED: MORPHINE 4 MG/ML INJ. SYRINGE IVP ONE (21:15)
[2018-09-10 21:32] LABS: ANION GAP 7 (5-15); CALCIUM 9.5 mg/dL (8.4-11.0); CHLORIDE 96 mmol/L (98-107); CREATININE 0.84 mg/dL (0.55-1.30); GLUCOSE 145 mg/dL (70-99); POTASSIUM 5.2 mmol/L (3.5-5.1); SODIUM SERUM 129 mmol/L (136-145); UREA NITROGEN, BLOOD 38 mg/dL (8-21)
[2018-09-10 21:36] LABS: ALANINE AMINOTRANSFERASE 15 U/L (12-78); ALBUMIN 1.8 g/dL (3.4-4.8); AMYLASE 8 U/L (0-100); ASPARTATE AMINOTRANSFERASE 18 U/L (10-37); LIPASE 30 U/L (73-393); TOTAL BILIRUBIN 0.4 mg/dL (0.0-1.0)
--- NOTE | 2018-09-10 21:55 | NUR ---
INSERTED WHITE CATHETER 16 ICELANDIC. PATIENT TOLERATED WELL. Addendum: 09/10/18 at 2332 by [facility] Patient on strict I&O's.
--- NOTE | 2018-09-10 22:10 | NUR ---
# 20 gauge angiocath placed to L AC. Use of asceptic technique. Opsite placed over site. Blood return noted. Flushed with 10 cc of normal saline. No evidence of infiltration noted. Patient tolerated well.
[2018-09-10 22:16] LABS: BILIRUBIN,URINE 1+ (NEGATIVE); BLOOD, URINE NEGATIVE (NEGATIVE); CLARITY/URINE CLEAR (CLEAR); COLOR,URINE YELLOW (YELLOW); GLUCOSE,URINE NEGATIVE (NEGATIVE); KETONES,URINE NEGATIVE (NEGATIVE); LEUKOCYTE ESTERASE ,URINE TRACE (NEGATIVE); NITRITE, URINE NEGATIVE (NEGATIVE); PH,URINE 5.5 (5.0-8.0); PROTEIN URINE NEGATIVE (NEGATIVE); UROBILINOGEN,URINE 0.2 (0.2-1.0)
[2018-09-10 22:42] LABS: BAND % (MANUAL) 12 % (0-6); BASOPHILS % (MANUAL) 0 % (0-2); EOSINOPHILS % (MANUAL) 1 % (0-7); LYMPHOCYTES % (MANUAL) 10 % (20-46); MONOCYTES % (MANUAL) 3 % (0-11)
--- NOTE | 2018-09-10 23:07 | NUR ---
Dr. Do to enter Orders for admission.
[2018-09-10 23:10] LABS: BACTERIA,URINE FEW /HPF (None Seen); MUCUS,URINE 2+ /LPF (None Seen)
[2018-09-10] MEDS ORDERED: ONDANSETRON HCL 4 MG/2 ML VIAL IVP PRN (23:15)
[2018-09-10] MEDS ORDERED: NOREPINEPHRINE BITARTRATE 4 MG in NS 246 ML IV ONE (23:15)
--- NOTE | 2018-09-10 23:22 | NUR ---
Patient will be admitted to care of Dr. Chisholm. Admitted to ICU unit. Belongings list completed. Summary report printed. Report will be given at bedside.
--- NOTE | 2018-09-10 23:23 | NUR ---
charge nurse will call for bed placement
[2018-09-10 23:27] VITALS: BP_SYST 98
--- NOTE | 2018-09-10 23:38 | NUR ---
Patient to ICU 2.
--- NOTE | 2018-09-10 23:45 | NUR ---
Transfer to ICU via ACLS protocol. Licensed nurse present. IV present no signs or symptoms of infiltration.
[2018-09-10 23:50] VITALS: BP_SYST 109
--- NOTE | 2018-09-10 23:50 | NUR ---
ADMISSION ASSESSMENT Pt admitted from ER via gurney and placed in ICU bed 2. Report received from ALLY Hernandez using SBAR format. Pt placed on in room quality assurance monitor body. VSS w/ Sinus Tach seen on the monitor. Pt on 2L O2 via NC tolerating well w/ O2 sats @ 95% and even and unlabored breathing. Pt has a R AC 18g SL and L AC 20g SL, dressing c/d/i, benign and patent. Espinoza cath noted draining urine to gravity. Pt doesn't verbalize any other needs at this time and no signs of acute distress or discomfort noted. Bed is locked and in lowest position, call light w/in reach, will continue to monitor pt.
--- NOTE | 2018-09-10 23:50 | NUR ---
Patient will be admitted to care of Dr. Chisholm. Admitted to ICU unit. Will go to room ICU 2. Belongings list completed. Summary report printed. Report will be given at bedside.
[2018-09-11] VITALS (24 sets, daily range): BP systolic 83–131
[2018-09-11] MEDS ORDERED: VANCOMYCIN HCL 1 GM/NS PREMIX 250 ML IV ONE
--- NOTE | 2018-09-11 | NUR ---
Pt placed on low airloss mattress.
[2018-09-11] MEDS ORDERED: PIPERACILLIN/TAZOBACTAM 3.375 GM/VIAL (ZOSYN) IV ONE (00:21)
--- NOTE | 2018-09-11 00:30 | NUR ---
Pt's two sons let in to see pt. Opportunity for questions, questions answered. Pt son's states they will come back in the morning. Will cont to monitor pt.
[2018-09-11] MEDS: PIPERACILLIN/TAZO 3.375/DEX-IS 50 ML IV SCH ×4 (00:31→17:22)
[2018-09-11] MEDS: NACL 0.9% 1,000 ML IV SCH ×3 (00:31→11:30)
[2018-09-11] MEDS: VANCOMYCIN HCL 1000 MG/VIAL IV ONE ×2 (00:32→00:38)
[2018-09-11] MEDS: ALBUTEROL SULFATE 0.083% 2.5 MG/3 ML VIAL.NEB INH PRN (00:35)
[2018-09-11] MEDS ORDERED: NOREPINEPHRINE 4 MG/4 ML VIAL IV ONE (01:17)
[2018-09-11] MEDS ORDERED: NOREPINEPHRINE BITARTRATE 4 MG in NS 246 ML IV PRN (02:00)
--- NOTE | 2018-09-11 02:20 | NUR ---
Pt went into uncontrolled afib at this time. HR 133. Will cont to monitor.
--- NOTE | 2018-09-11 02:30 | NUR ---
Pictures taken of pt's skin and skin care was performed, pt tolerated, will cont to monitor.
--- NOTE | 2018-09-11 03:20 | NUR ---
PT IN RAPID ATRIA FIB RATE 145-170, BP 97/60 ON 4 MCG LEVOPHED. NOTIFIED .ORDER RECEIVED FOR DIG 0.125 MG IVP .ALSO INFORMED HER OF PTS LOW OUT PUT. NO ORDERS FOR THAT YET.
[2018-09-11] MEDS ORDERED: DIGOXIN 0.5 MG/2 ML AMP ONE (03:47)
[2018-09-11] MEDS ORDERED: DIGOXIN 0.5 MG/2 ML AMP IVP ONE (04:00)
--- NOTE | 2018-09-11 05:20 | NUR ---
Pt converted back to Sinus Tachycardia at this time, will cont to monitor pt.
[2018-09-11 05:25] LABS: BASOPHILS # (AUTO) 0.1 K/uL (0.0-0.2); BASOPHILS % (AUTO) 0.6 % (0.0-2.0); EOSINOPHILS % (AUTO) 0.2 % (0.0-4.0); HEMATOCRIT 28.3 % (36-48); HEMOGLOBIN 8.7 g/dL (12.0-16.0); LYMPHOCYTES # (AUTO) 0.6 K/uL (1.0-5.5); LYMPHOCYTES % (AUTO) 5.5 % (20.5-51.5); MEAN CORPUSCULAR HEMOGLOBIN 26 pg (27-31); MEAN CORPUSCULAR HGB CONC 31 % (32-36); MEAN CORPUSCULAR VOLUME 86 fL (79.0-98.0); MONOCYTES # (AUTO) 0.4 K/uL (0.0-1.0); NEUTROPHILS # (AUTO) 10.1 K/uL (1.8-7.7); PLATELET COUNT (AUTO) 377 K/uL (130-430); RED BLOOD CELL COUNT(AUTO) 3.28 MIL/uL (4.2-6.2); RED CELL DISTRIBUTION WIDTH 18.8 % (9.0-15.0); WHITE BLOOD COUNT (AUTO) 11.2 K/uL (4.8-10.8)
--- NOTE | 2018-09-11 05:48 | NUR ---
ROUNDS Dr. Gray in to examine pt.
--- NOTE | 2018-09-11 06:00 | NUR ---
cardiology consult with called, reason elevated troponin, spoke with robotic machine operator 22 @ exchange.
[2018-09-11 06:07] LABS: ANION GAP 8 (5-15); CHLORIDE 101 mmol/L (98-107); GLUCOSE 238 mg/dL (70-99); SODIUM SERUM 133 mmol/L (136-145)
[2018-09-11 06:08] LABS: ASPARTATE AMINOTRANSFERASE 25 U/L (10-37); CALCIUM 8.9 mg/dL (8.4-11.0); CREATININE 0.87 mg/dL (0.55-1.30); TOTAL BILIRUBIN 0.3 mg/dL (0.0-1.0); UREA NITROGEN, BLOOD 35 mg/dL (8-21)
[2018-09-11 06:09] LABS: ALANINE AMINOTRANSFERASE 17 U/L (12-78); ALBUMIN 1.6 g/dL (3.4-4.8)
[2018-09-11 06:34] LABS: NEUTROPHILS % (AUTO) 89.7 % (40.0-70.0)
--- NOTE | 2018-09-11 06:48 | NUR ---
Nutrition Update Jimenez Scale 13 noted. Pt admitted for Sepsis, Stage IV Lung Cancer Diet: [facility] BMI: 30.2 kg/m2 RD to follow per nutrition care standards.
--- NOTE | 2018-09-11 07:10 | NUR ---
ENDORSEMENT Report given to ALLY Velasco using SBAR format and pt care was endorsed. Pt in bed w/ eyes closed resting comfortably. No signs of acute distress or discomfort noted.
--- NOTE | 2018-09-11 07:13 | NUR ---
Opening Note Received bedside report from Master CANALES for continuation of care. Received patient awake in bed, no signs or symptoms of acute distress noted. Patient denies any pain. Bed locked in lowest position, bed alarm on, and call light within reach.
--- NOTE | 2018-09-11 08:50 | NUR ---
2D ECHO being performed at bedside. No signs or symptoms of acute distress noted.
--- NOTE | 2018-09-11 09:10 | NUR ---
Dr. Chisholm at bedside examining patient. New orders received.
[2018-09-11] MEDS: VANCOMYCIN HCL 750 MG/NS 250 ML IV SCH ×2 (10:02→22:04)
[2018-09-11] MEDS ORDERED: HYDROCORTISONE SOD SUCC 100 MG/2 ML VIAL IVP ONE (11:00)
--- NOTE | 2018-09-11 11:01 | NUR ---
Dr. De Leon at bedside examining patient. New orders received.
--- NOTE | 2018-09-11 11:05 | NUR ---
Patient's sons at bedside. Updated on patient status and plan of care. Opportunity for questions, questions answered clearly and education provided.
[2018-09-11] MEDS: MORPHINE 2 MG/ML INJ. SYRINGE IVP PRN (11:31)
--- NOTE | 2018-09-11 11:35 | NUR ---
Dietitian Recommendations *Recommend [facility] diet w/ Glucerna BID. ONS will provide additional 440 kcal and 20 gm protein daily. *Encourage pt to increase PO intake. Please see Nutritional Assessment for details. DANETTE, RD
--- NOTE | 2018-09-11 15:30 | NUR ---
Dr. Silva at bedside examining patient. New orders received.
--- NOTE | 2018-09-11 15:31 | NUR ---
CHG/Wound Care CHG bath given and wound care performed per wound care guidelines. No signs or symptoms of acute distress noted. Patient tolerated well with minimal discomfort. Bed locked in lowest position, bed alarm on, and call light within reach.
[2018-09-11] MEDS ORDERED: AMIODARONE HCL 200 MG TABLET PO ONE (15:45)
--- NOTE | 2018-09-11 19:02 | NUR ---
Endorsement Endorsed bedside report to oncoming RN using SBAR approach for continuation of care.
--- NOTE | 2018-09-11 20:00 | NUR ---
AWAKE, ALERT, ORIENTED X3. REORIENTED TO CIRCUMSTANCE. DENIES PAIN. BREATH SOUNDS ESSENTIALLY CLEAR. ON O2 AT 2L/MIN/NC. BOWEL SOUNDS (+). PULSES PALPABLE. SKIN W/D. COLOR PALE. HOB UP TO COMFORT. SIDE RAILS UP. CALL LIGHTS WITHIN REACH. WHITE CATH PATENT DRAINING CLEAR ABIMAEL URINE TO GRAVITY. SINUS RHYTHM. LEVOPHED DRIP AT 2 MCG/MIN.
--- NOTE | 2018-09-11 21:15 | NUR ---
BP 120/61, LEVOPHED DRIP TURNED OFF AT THIS TIME.
[2018-09-11] MEDS: HYDROCORTISONE SOD SUCC 100 MG/2 ML VIAL IVP SCH (22:03)
[2018-09-12] VITALS (12 sets, daily range): BP systolic 99–132
--- NOTE | 2018-09-12 | NUR ---
AWAKE.NO DISTRESS NOTED. TURNED.
[2018-09-12] MEDS: PIPERACILLIN/TAZO 3.375/DEX-IS 50 ML IV SCH ×4 (00:17→17:59)
--- NOTE | 2018-09-12 02:00 | NUR ---
AWAKE, RESTING QUIETLY. BOUTS OF CONFUSION. DISORIENTED TO TIME, REORIENTED. "COULD YOU CALL MY BOYS TO COME HERE ?". "I HAVEN'T SEEN MY BOYS." INFORMED THAT HER BOYS WERE JUST HERE VISITING [place] AND IT IS 2 O'CLOCK IN THE MORNING NOW. STATED THAT SHE'LL WAIT FOR 8 O'CLOCK IN THE MORNING THEN. REQUESTED HER SCD'S TO BE REMOVED. SCD'S TAKEN OFF PER ORDER OF DR CORONA.
[2018-09-12] MEDS: ALBUTEROL SULFATE 0.083% 2.5 MG/3 ML VIAL.NEB INH PRN ×3 (03:00→23:35)
--- NOTE | 2018-09-12 03:00 | NUR ---
HAD SOB, DESATURATING AT 87%. PLACED ON 4L/NC. BREATHING TREATMENT GIVEN BY RT. SAT IMPROVED TO 98%.
--- NOTE | 2018-09-12 04:00 | NUR ---
DOZES ON AND OFF. VSS. NO DISTRESS NOTED. REPOSITIONED.
--- NOTE | 2018-09-12 05:00 | NUR ---
AM CARE. WHITE CARE, BACK CARE, KRYSTA-CARE, SKIN CARE, ORAL CARE RENDERED. PARTIAL LINEN CHANGE. DOES NOT ASSIST WITH TURNING. OSMANY PROC WELL.
[2018-09-12 05:38] LABS: HEMATOCRIT 23.8 % (36-48); HEMOGLOBIN 7.6 g/dL (12.0-16.0); MEAN CORPUSCULAR HEMOGLOBIN 27 pg (27-31); MEAN CORPUSCULAR HGB CONC 32 % (32-36); MEAN CORPUSCULAR VOLUME 85 fL (79.0-98.0); PLATELET COUNT (AUTO) 227 K/uL (130-430); RED BLOOD CELL COUNT(AUTO) 2.81 MIL/uL (4.2-6.2); RED CELL DISTRIBUTION WIDTH 18.5 % (9.0-15.0); WHITE BLOOD COUNT (AUTO) 4.9 K/uL (4.8-10.8)
[2018-09-12] MEDS: HYDROCORTISONE SOD SUCC 100 MG/2 ML VIAL IVP SCH ×3 (05:52→22:34)
--- NOTE | 2018-09-12 06:00 | NUR ---
UO ADEQUATE. NO COMPLAINTS OFFERED AT THIS TIME. REMAINS IN GUARDED CONDITION.
[2018-09-12 06:05] LABS: ALANINE AMINOTRANSFERASE 17 U/L (12-78); ALBUMIN 1.4 g/dL (3.4-4.8); ANION GAP 5 (5-15); ASPARTATE AMINOTRANSFERASE 18 U/L (10-37); CALCIUM 8.9 mg/dL (8.4-11.0); CHLORIDE 105 mmol/L (98-107); CREATININE 0.73 mg/dL (0.55-1.30); GLUCOSE 179 mg/dL (70-99); POTASSIUM 3.9 mmol/L (3.5-5.1); SODIUM SERUM 134 mmol/L (136-145); TOTAL BILIRUBIN 0.2 mg/dL (0.0-1.0); UREA NITROGEN, BLOOD 24 mg/dL (8-21)
--- NOTE | 2018-09-12 07:40 | NUR ---
Received patient and report. Patient in bed in no acute distress. Awake and alert. Side rails x 3 up. Call light with in reach.
[2018-09-12 08:14] LABS: BAND % (MANUAL) 5 % (0-6); BASOPHILS % (MANUAL) 0 % (0-2); EOSINOPHILS % (MANUAL) 1 % (0-7); LYMPHOCYTES % (MANUAL) 7 % (20-46); MONOCYTES % (MANUAL) 4 % (0-11)
--- NOTE | 2018-09-12 08:40 | NUR ---
Md Chisholm at bedside. Reported potassium at 3.9 and hemoglobin 7.6/hematocrit 23.8. No new orders. Stated patient may go to tele.
[2018-09-12] MEDS ORDERED: AMIODARONE HCL 200 MG TABLET PO SCH (09:00)
[2018-09-12] MEDS: MORPHINE 2 MG/ML INJ. SYRINGE IVP PRN (10:06)
[2018-09-12] MEDS: NACL 0.9% 1,000 ML IV SCH (11:53)
[2018-09-12] MEDS: VANCOMYCIN HCL 750 MG/NS 250 ML IV SCH ×2 (11:54→22:38)
--- NOTE | 2018-09-12 12:00 | NUR ---
IV site at AC left arm d/c. New IV site left lower arm 20 gauge.
[2018-09-12] MEDS: MORPHINE 4 MG/ML INJ. SYRINGE IVP PRN (14:26)
--- NOTE | 2018-09-12 15:17 | NUR ---
Emergency Medicine Physician Assistant Note BINDERY CHIEF met with patient and sons briefly prior to transfer to tele. Offered support and business card. They plan to take patient home upon discharge and have no questions at this time. Will remain available upon request.
--- NOTE | 2018-09-12 15:44 | NUR ---
Patient received a/ox4, denies pain, assessment complete, on 4L nasal cannula O2 Sat at 97% at this time, IV line is patent and infusing well, Espinoza Catheter in place draining to gravity yellow urine, right subclavian portacath noted, dressing is clean dry and intact, discussed plan of care and educated precision honer light system and to call for any assistance with patient and family, they verbalized understanding, continuing to monitor, bed in lowest position, three side rails up, bed alarm on, call light placed within reach, fall and aspiration precautions in place.
--- NOTE | 2018-09-12 15:44 | NUR ---
Transferred patient to room 119B tele unit. Patient stated happy with care given. In no acute distress. Side rails x 3 up. Call light with in reach. Sons at bedside with patient. Report and endorsement given to nurse Winn. Patient on 4 liters via MT.
[2018-09-12] MEDS ORDERED: NACL 0.9% 1,000 ML IV SCH (16:00)
--- NOTE | 2018-09-12 17:59 | NUR ---
RN rounds patient resting in bed, eating dinner, aspiration precautions in place, patient denies pain, educated on IV antibiotic uses and potential side effects, she verbalized understanding, IV line is patent and infusing well, IV fluid rate adjusted per MD orders, continuing to monitor the patient, bed in lowest position, three side rails up, call light within reach, bed alarm on, fall precautions also in place.
--- NOTE | 2018-09-12 18:29 | NUR ---
Closing note patient resting in bed, finishing dinner, aspiration precautions in place, patient in stable condition, all needs met, will endorse report to NOC shift nurse, IV line is patent and infusing well, bed in lowest position, three side rails up, bed alarm on, call light within reach, fall and aspiration precautions in place.
--- NOTE | 2018-09-12 20:05 | NUR ---
INITIAL NOTES: PATIENT IN BED AWAKE ORIENTED X2 FORGETFUL SPECIFIC PLACE AND TIME.SATURATION ON 4 LITERS OXYGEN 88% RT INITIATED VENTI MASK AT 45 %. O2 SAT UP TO 89-90 % THEN UP TO 50%.RR 28 USING ACCESSORY MUSCLES. VITAL SIGNS TAKEN. GENERALIZED EDEMA. UNABLE TO MOVE LEFT ARM. LEFT LEG MOVES SLOWLY. RT. UPPER LIMBS NORMAL. PT. FOLLOW SIMPLE COMMANDS, SPEECH CLEAR.HR 88-90/MIN SINUS. WHITE IN WITH SMALL DARK ABIMAEL URINE.HOB UP45 DEG. WILL MONITOR CLOSELY.
--- NOTE | 2018-09-12 20:09 | NUR ---
PERSON I SPOKE WITH: Dipika PHYSICIAN FOR ORDERS: Dr. De Leon (Dr. Acosta Assembly Worker) PHONE NUMBER: [phone] Addendum: 09/12/18 at 2013 by Ree Dee [place]/ PHON NUMBER: [phone]
--- NOTE | 2018-09-12 20:20 | NUR ---
LIVE SOURCE OPERATOR REPORTED SVT AT HR 140 TO 155. SEEN PATIENT BP 109/51 HR 145/MIN SAT 90%. WILL MONITOR CLOSELY. MAIL HANDLER ASSISTANT AWARE.
--- NOTE | 2018-09-12 20:30 | NUR ---
PERSON I SPOKE WITH: LEXII CONSULTING PHYSICIAN: DR. ISIDRO (DR. GARAY PSYCHIATRIC ARNP) MANNEQUIN MOLD MAKER PHONE NUMBER: [phone]
--- NOTE | 2018-09-12 20:50 | NUR ---
SPOKE TO DR. MARR ABOUT DECREASED SAT. ON 4 LITERS OF O2. GAVE AN ORDER TO TITRATE O2 TO KEEP SAT>91%.
--- NOTE | 2018-09-12 20:51 | NUR ---
PERSON I SPOKE WITH: LEXII CONSULTING PHYSICIAN: DR. GARAY FOR DR. ISIDRO WALL WASHER PHONE NUMBER: [phone]
[2018-09-12] MEDS ORDERED: AMIODARONE HCL 900 MG in D5W 482 ML IV SCH (21:15)
[2018-09-12] MEDS ORDERED: AMIODARONE HCL 150 MG in D5W 100 ML IV ONE (21:45)
--- NOTE | 2018-09-12 21:50 | NUR ---
KIMBERLI GARZA GAVE A BATH ,TOLERATED WELL. UNDER PADS SATURATED WIT DARK ABIMAEL URINE. 6 ML NS ADDED TO WHITE BALLOON.
--- NOTE | 2018-09-12 22:00 | NUR ---
AMIODARONE IV ORDERS ARE PREPARED. HR CONVERTED TO SINUS TACH 108-115/MIN.
[2018-09-12] MEDS ORDERED: AMIODARONE HCL 150 MG/3ML VIAL ONE (22:09)
--- NOTE | 2018-09-12 22:10 | NUR ---
DR. GARAY, IT AUDITOR CRITICAL CARE REGISTERED NURSE FOR DR. ISIDRO CALLED BACK .MADE AWARE OF SVT AND VITAL SIGNS.WITH ORDERS. BP 99/56 HR 120-133MIN. SAT 97% AT 40% VENTIMASK. DOOR MACHINE OPERATOR AWARE.
--- NOTE | 2018-09-12 22:14 | NUR ---
DR. TANISHA LAI CONSULTING PHYSICIAN: DR. GARAY SPOKE TO LEXII LENDING ADVISOR PHONE NUMBER: [phone]
--- NOTE | 2018-09-12 22:15 | NUR ---
SPOKE TO DR. GARAY ABOUT HR IS ST WITH ORDERS.
[2018-09-12] MEDS ORDERED: AMIODARONE HCL 900 MG/18 ML VIAL IV ONE (22:16)
[2018-09-13 00:30] VITALS: BP_SYST 97
--- NOTE | 2018-09-13 00:30 | NUR ---
O2 DECREASED TO 40% BY RT.
--- NOTE | 2018-09-13 00:35 | NUR ---
UNDER PAD WITH MOD .AMT OF DARK ABIMAEL, POSSIBLE LEAKAGE.
[2018-09-13] MEDS: PIPERACILLIN/TAZO 3.375/DEX-IS 50 ML IV SCH ×4 (00:43→17:57)
--- NOTE | 2018-09-13 01:00 | NUR ---
PATIENT HAS LEFT BUTTOCKS SKIN TEAR ,PHOTO TAKEN .SKIN CARE DONE. COVERED WITH OPTIFOAM.
--- NOTE | 2018-09-13 02:35 | NUR ---
NOTED MUCUS PLUGS TO WHITE CATH. IRRIGATE WITH NS 150ML .MUCUS REMOVED /
[2018-09-13] MEDS: MORPHINE 2 MG/ML INJ. SYRINGE IVP PRN (02:46)
[2018-09-13] MEDS: ALBUTEROL SULFATE 0.083% 2.5 MG/3 ML VIAL.NEB INH PRN (03:48)
--- NOTE | 2018-09-13 05:30 | NUR ---
NO LEAKAGE THIS TIME. HAD 100ML URINE.
[2018-09-13] MEDS: HYDROCORTISONE SOD SUCC 100 MG/2 ML VIAL IVP SCH ×3 (06:22→22:06)
[2018-09-13 06:44] LABS: BASOPHILS % (AUTO) 0.4 % (0.0-2.0); EOSINOPHILS % (AUTO) 0.4 % (0.0-4.0); HEMATOCRIT 23.3 % (36-48); HEMOGLOBIN 7.4 g/dL (12.0-16.0); LYMPHOCYTES # (AUTO) 0.2 K/uL (1.0-5.5); LYMPHOCYTES % (AUTO) 4.6 % (20.5-51.5); MEAN CORPUSCULAR HEMOGLOBIN 27 pg (27-31); MEAN CORPUSCULAR HGB CONC 32 % (32-36); MEAN CORPUSCULAR VOLUME 86 fL (79.0-98.0); MONOCYTES # (AUTO) 0.2 K/uL (0.0-1.0); MONOCYTES % (AUTO) 4.5 % (1.7-9.3); NEUTROPHILS # (AUTO) 4.6 K/uL (1.8-7.7); NEUTROPHILS % (AUTO) 90.1 % (40.0-70.0); PLATELET COUNT (AUTO) 240 K/uL (130-430); RED CELL DISTRIBUTION WIDTH 18.4 % (9.0-15.0); WHITE BLOOD COUNT (AUTO) 5.1 K/uL (4.8-10.8)
--- NOTE | 2018-09-13 07:00 | NUR ---
CLOSING: HEART RATE STILL SINUS TACH ,NO ACUTE DISTRESS. DENIES CHEST PAIN. O2 AT 40% VENTI MASK.SKIN AND ORAL CARE DONE. FULL REPORT GIVEN TO AM ALLY HERNANDEZ.
--- NOTE | 2018-09-13 07:10 | NUR ---
Received report from endorsing RN. Pt states no pain at this time but is seen breathing deeply. Pt states no distress.
[2018-09-13 08:00] VITALS: BP_SYST 130
[2018-09-13 11:26] VITALS: BP_SYST 132
--- NOTE | 2018-09-13 11:45 | NUR ---
WOUND EVALUATION: Late note for 1145 secondary to patient care. Wound Consult received from Dr. Chisholm. Thank you, Dr. Chisholm, for the consult. Patient received in a Robert Bed with an Isoflex CESARIO mattress with low air loss therapy initiated, awake, alert, and oriented. Patient is unable to turn in bed independently. Jimenez Score is a 12. Past Medical History: Stage IV Lung Cancer, Diabetes Mellitus, Hypertension, Hyperlipidemia, COPD, lung cancer surgery, recurrent pleural effusion and postobstructive pneumonia. Recent Labs: WBC 5.1, RBC 2.70, hemoglobin 7.4, hematocrit 23.3, sodium 134, BUNs 24, creatinine 0.73, glucose 179, albumin 1.4. Intrinsic factors that delay wound healing: Stage IV Lung Cancer, Diabetes Mellitus, COPD. Extrinsic factors that delay wound healing: Decreased mobility. Microbiology: Blood culture results 2 in progress. Urine culture results negative. MRSA screen results negative. Wound Assessment: 1. Left Buttock: Shearing injury. Site has 60% white tissue, 40% pink tissue. No odor, no drainage. Periwound has loose residual skin. Surrounding tissue has dark discoloration. Wound measures 0.6 cm x 0.4 cm. 2. Left Buttock, inferior to Wound 1: Shearing injury. Site has 100% dark red tissue. No odor, no drainage. Periwound has loose residual skin. Surrounding tissue has dark discoloration. Wound measures 0.4 cm x 0.3 cm. Recommend: Cleanse wounds with normal saline. Pat dry. Apply moisture barrier cream to simon-wound. Apply Hydrogel to any portion of wounds not covered by moisture barrier cream. Cover with foam dressing. Perform wound care daily, and as needed for dressing soiling or dislodgement. Also recommend: Encourage and assist patient with repositioning side to side only every 2 hours with pillow support, and off-load pressure areas with pillows for pressure re-distribution (place one pillow under her back and one pillow underneath pelvis, ensuring that buttock area floats, and you can place your hand easily underneath the buttock). Offload, elevate and float bilateral heels with one pillow lengthwise under each extremity at all times. Perform skin care and monitor skin integrity Q shift. Use moisture barrier cream on buttocks and other moisture susceptible areas QID and as needed for soiling. Maintain patient on a low air-loss mattress.
--- NOTE | 2018-09-13 12:00 | NUR ---
Wound care done. Pt states no distress at this time.
[2018-09-13] MEDS: VANCOMYCIN HCL 750 MG/NS 250 ML IV SCH ×2 (12:25→22:13)
[2018-09-13] MEDS ORDERED: IPRATROPIUM BROM 0.5 MG/2.5 ML VIAL.NEB (ATROVENT) INH ONE (13:45)
[2018-09-13] MEDS ORDERED: FUROSEMIDE 20 MG/2 ML VIAL IVP ONE ×2 (13:45→15:00)
[2018-09-13] MEDS ORDERED: LEVALBUTEROL HCL 0.63 MG/3 ML VIAL.NEB INH ONE (13:45)
[2018-09-13 14:00] VITALS: BP_SYST 130
[2018-09-13 15:48] VITALS: BP_SYST 130
--- NOTE | 2018-09-13 16:15 | NUR ---
BT INITIATION: Consent signed per patient's son agreeing to administration of blood. Blood has been type and crossmatched. Blood sent from blood bank. Information on unit of blood checked against patient wristband at bedside by two nurses. All information matches. Patient or responsible alliance party informed of potential complications associated with blood transfusion. Informed of possible transfusion reaction symptoms. Aware of need to notify nurse at once of itching, shortness of breath, flushing, feeling of impending doom, or other symptoms not previously present. Vital signs taken within 5 minutes prior to initiation of transfusion. VS: T 96.8, HR 87, R 16, BP 119/68. RN will remain with patient for first 15 minutes of transfusion at which time vital signs will be re-assessed.
--- NOTE | 2018-09-13 16:30 | NUR ---
15 mins of blood transfusion: pt states no pain or distress at this time.
[2018-09-13] MEDS: MORPHINE 4 MG/ML INJ. SYRINGE IVP PRN ×2 (17:48→23:34)
[2018-09-13] MEDS ORDERED: DILTIAZEM HCL 25 MG/5 ML VIAL IVP ONE ×2 (18:45→23:00)
[2018-09-13] MEDS ORDERED: DILTIAZEM HCL 25 MG/5 ML VIAL ONE ×2 (18:50→23:16)
[2018-09-13] MEDS ORDERED: FUROSEMIDE 40 MG/4 ML VIAL IVP ONE (19:00)
--- NOTE | 2018-09-13 19:10 | NUR ---
Endorsed plan of care to associate director qa RN.
[2018-09-13 19:49] VITALS: BP_SYST 95
--- NOTE | 2018-09-13 19:49 | NUR ---
Opening notes Pt AAOx3. No acute distress noted. Pt receiving blood transfusion at this time L FA 20G. R. chest portacath not accessed. Dressing to buttocks C/D/I. Pt on low air loss mattress. Espinoza catheter draining to gravity with good amount of clear, yellow urine. Thomas SCDs in place. Call light within reach. Will continue to monitor.
[2018-09-13] MEDS: LEVALBUTEROL HCL 0.63 MG/3 ML VIAL.NEB INH SCH (19:50)
[2018-09-13] MEDS: IPRATROPIUM BROM 0.5 MG/2.5 ML VIAL.NEB (ATROVENT) INH SCH (19:50)
--- NOTE | 2018-09-13 20:30 | NUR ---
BT completed Pt alert, awake, VSS. BP 128/57 HR 92 T 96.7. No s/s blood transfusion reaction noted. Call light within reach. Family at bedside. To monitor.
[2018-09-13] MEDS: DILTIAZEM HCL 60 MG TABLET PO SCH (22:12)
--- NOTE | 2018-09-13 22:49 | NUR ---
PAGED PAGING DR. ISIDRO FOR ORDERS, SPOKE WITH ELYDI
--- NOTE | 2018-09-13 22:55 | NUR ---
Paged HR sustaining in the 150's, paged Dr. Hart. Received order for Cardizem 20mg IVP x 1. Will carry out.
--- NOTE | 2018-09-13 23:36 | NUR ---
Pain med Pt awake, c/o pain in catheter area 12/12, catheter bag adjusted. BP 112/72 HR 151. Medicated with Morphine 4mg IVP left forearm. Call light within reach. Will continue to monitor.
[2018-09-14] VITALS (19 sets, daily range): BP systolic 92–144
--- NOTE | 2018-09-14 00:26 | NUR ---
PAGED PAGING DR. ISIDRO FOR ORDERS, SPOKE WITH TRANSPORTATION MAINTENANCE SPECIALIST #4
[2018-09-14] MEDS: PIPERACILLIN/TAZO 3.375/DEX-IS 50 ML IV SCH ×4 (00:30→17:53)
--- NOTE | 2018-09-14 00:30 | NUR ---
Terra ARREDONDO Paged and spoke with Dr. Hart and informed of HR 130-150's. Pt asymptomatic. No new orders received.
[2018-09-14] MEDS: LEVALBUTEROL HCL 0.63 MG/3 ML VIAL.NEB INH SCH ×4 (01:09→19:45)
[2018-09-14] MEDS: IPRATROPIUM BROM 0.5 MG/2.5 ML VIAL.NEB (ATROVENT) INH SCH ×4 (01:10→19:45)
--- NOTE | 2018-09-14 01:40 | NUR ---
Rounds Pt asleep. No s/s distress noted. Call light within reach. Bed low, locked, siderails x3 up. To monitor.
--- NOTE | 2018-09-14 02:05 | NUR ---
Rounds Pt asleep. HR 150's and down to 132. Asymptomatic. O2 via Venti mask saturation 94%. Call light within reach. Espinoza cath draining to gravity. Will continue to monitor.
[2018-09-14] MEDS: DILTIAZEM HCL 60 MG TABLET PO SCH ×3 (04:37→17:53)
--- NOTE | 2018-09-14 04:47 | NUR ---
PAGED PAGING THE GLOBAL CLIMATE CHANGE RESEARCHER PHYSICIAN DR. RIOS, FOR ORDERS, SPOKE WITH HELIO
--- NOTE | 2018-09-14 04:55 | NUR ---
PAGED PAGING DR. ISIDRO SPOKE WITH SPOKE WITH SITE INSPECTOR #2
--- NOTE | 2018-09-14 05:01 | NUR ---
PAGED HR sustaining in the 170s, BP 120/87. Pt awake, alert, O2 sat 90% and pt diaphoretic. Blood sugar checked 178. Paged Dr. Hart and informed him. Per MD Transfer to ICU and start on Cardizem IV drip once there. CRN made aware.
[2018-09-14] MEDS ORDERED: DILTIAZEM HCL 125 MG in D5W 100 ML IV SCH (05:15)
[2018-09-14] MEDS ORDERED: DILTIAZEM HCL 25 MG/5 ML VIAL ONE (05:22)
--- NOTE | 2018-09-14 05:24 | NUR ---
LEFT VOICEMAIL WITH FAMILY TO REPORT TRANSFER TO ICU LEFT VOICE MESSAGE TO MONI BORJAS (SON), , TO REPORT PATIENT WILL BE TRANSFERRED TO ICU. UNABLE TO REACH PATIENT'S FAMILY. PRIMARY NURSE AWARE TO FOLLOW-UP.
[2018-09-14] MEDS ORDERED: DILTIAZEM HCL 25 MG/5 ML VIAL IVP ONE (05:30)
--- NOTE | 2018-09-14 05:35 | NUR ---
Transfer to ICU Pt alert, awake, transferred to ICU Bed 2 for higher level of care. Report given to ALLY Jefferson. All belongings with pt.
--- NOTE | 2018-09-14 06:00 | NUR ---
ADMISSION Received Pt from [facility] RN, Pt AAOX3 in bed with HR on 160's, BP 121/63, temp 98.6, O2 saturation 96%, RR 22. Cardizem drip started. Venti mask at 50%. Port a cath in placed for chemo therapy. IV patent with no infiltration noted. Espinoza catheter in placed draining to clear yellow urine to gravity. Safety precaution observed, call light within reach. Bed elevated to 45 degrees. Will continue to monitor Pt.
[2018-09-14] MEDS ORDERED: DILTIAZEM HCL 125 MG/25 ML VIAL IV ONE (06:02)
[2018-09-14] MEDS: HYDROCORTISONE SOD SUCC 100 MG/2 ML VIAL IVP SCH ×3 (06:24→22:39)
--- NOTE | 2018-09-14 07:17 | NUR ---
IV LINES AND SKIN CHECKED WITH ONCOMING RN.
--- NOTE | 2018-09-14 07:18 | NUR ---
Received patient and report from NOC shift. Patient in no acute distress, sleeping. Side rails x 3 up. Patient in nonrebreather mask 100% 02. Call light with in reach.
--- NOTE | 2018-09-14 08:34 | NUR ---
Called RT Millie, stated can put patient oximizer at 12 liters.
--- NOTE | 2018-09-14 09:17 | NUR ---
Patient on 10 liters oximizer satting at 92.
[2018-09-14 09:58] LABS: BASOPHILS # (AUTO) 0.1 K/uL (0.0-0.2); BASOPHILS % (AUTO) 0.6 % (0.0-2.0); EOSINOPHILS % (AUTO) 0.4 % (0.0-4.0); HEMATOCRIT 32.3 % (36-48); HEMOGLOBIN 10.6 g/dL (12.0-16.0); LYMPHOCYTES # (AUTO) 0.4 K/uL (1.0-5.5); LYMPHOCYTES % (AUTO) 3.8 % (20.5-51.5); MEAN CORPUSCULAR HEMOGLOBIN 29 pg (27-31); MEAN CORPUSCULAR HGB CONC 33 % (32-36); MEAN CORPUSCULAR VOLUME 88 fL (79.0-98.0); MONOCYTES # (AUTO) 0.3 K/uL (0.0-1.0); PLATELET COUNT (AUTO) 339 K/uL (130-430); RED BLOOD CELL COUNT(AUTO) 3.69 MIL/uL (4.2-6.2); RED CELL DISTRIBUTION WIDTH 17.8 % (9.0-15.0); WHITE BLOOD COUNT (AUTO) 9.8 K/uL (4.8-10.8)
[2018-09-14 10:05] LABS: ALANINE AMINOTRANSFERASE 18 U/L (12-78); ALBUMIN 1.6 g/dL (3.4-4.8); ANION GAP 10 (5-15); ASPARTATE AMINOTRANSFERASE 18 U/L (10-37); CALCIUM 8.9 mg/dL (8.4-11.0); CHLORIDE 100 mmol/L (98-107); CREATININE 0.68 mg/dL (0.55-1.30); GLUCOSE 225 mg/dL (70-99); SODIUM SERUM 141 mmol/L (136-145); TOTAL BILIRUBIN 0.4 mg/dL (0.0-1.0); UREA NITROGEN, BLOOD 12 mg/dL (8-21)
[2018-09-14 10:09] LABS: NEUTROPHILS % (AUTO) 92.2 % (40.0-70.0)
[2018-09-14] MEDS: MORPHINE 4 MG/ML INJ. SYRINGE IVP PRN (10:11)
[2018-09-14 10:12] LABS: POTASSIUM 2.5 mmol/L (3.5-5.1)
[2018-09-14] MEDS: VANCOMYCIN HCL 750 MG/NS 250 ML IV SCH ×2 (10:39→22:39)
[2018-09-14] MEDS ORDERED: POTASSIUM CHLORIDE 20 MEQ TAB.PRT.SR PO ONE ×2 (11:00→13:00)
--- NOTE | 2018-09-14 11:30 | NUR ---
MD Joseph paged, patient stated morphine 4 mg ineffective, c/o 8/10 generalized pain.
--- NOTE | 2018-09-14 12:30 | NUR ---
MD Joseph paged a second time.
[2018-09-14] MEDS ORDERED: AMIODARONE HCL 900 MG in D5W 482 ML IV SCH (13:00)
--- NOTE | 2018-09-14 13:17 | NUR ---
Nutrition F/U RD reviewed pt's current EMR including diet Hx, physician notes, nursing notes, pertinentn labs/meds/procedures, card trends, and care activity. Current Diet Order: CCHO, Glucerna BID x3 days Subjective Information: Pt was seen resting in bed w/ grand-daughter at bedside. Pt reported that she has been eating pretty good, though PO intake records indicate 39% average PO intakes x6 meals. RN stated that pt has been eating poorly today as well. RD inquired about Glucerna ONS, and she stated that she has been enjoying the chocolate-flavored Glucerna at breakfast/dinner. Pt would benefit from softer/chopped foods, and requested items such as pasta, macaroni and cheese, mashed potatoes, meatloaf, and hearty soups. RD to notify [facility] staff. Last BM was this morning. No changes in wt since admission per EMR records. Current % PO Consistently poor since 09/11/18 -- 39% average x6 meals MODIFIED Estimated Energy Expenditure (kcals/day) 9566-1626 kcal/day (30-35 kcal/kg Adj IBW for CA/sepsis resolved per physician notes) MODIFIED Estimated Protein Required (g/day) 86-114 gm/day (1.5-2 gm/kg Adj IBW for CA/sepsis resolved per physician notes) Estimated Fluid Required (l/day) 1.4 L/day (25ml/kg Adj IBW for Geriatric maintenance) Problem/Etiology/Signs/Symptoms Increased nutrient needs r/t metabolic demands AEB estimated calories and protein needs. *ongoing Increased risk for malnutrition r/t catabolic illness AEB poor PO intake for 2 months and unintentional weight loss per pt's report. *ongoing Expected Outcomes/Goals Monitor appetite and PO intake w/ goal of pt meeting at least 80% of estimated nutritional needs, labs trending WNL, normal GI function, skin integrity/wt maintenance. Dietitian Recommendations *Recommend CCHO, mechanical soft, finely chopped diet w/ Glucerna BID (ONS provides 440 kcal/day 20 gm protein/day) *Encourage pt to increase PO intake Follow Up High Risk: F/U in 2-3 days
--- NOTE | 2018-09-14 13:25 | NUR ---
Dietitian Recommendations *Recommend CCHO, mechanical soft, finely chopped diet w/ Glucerna BID (ONS provides 440 kcal/day 20 gm protein/day) *Encourage pt to increase PO intake LP, RD Please refer to Nutrition F/U for details.
[2018-09-14] MEDS ORDERED: MORPHINE 4 MG/ML INJ. SYRINGE IVP PRN (13:45)
[2018-09-14] MEDS ORDERED: AMIODARONE HCL 150 MG in D5W 100 ML IV ONE (14:00)
--- NOTE | 2018-09-14 14:00 | NUR ---
Granddaughter requested patient to have soft foods due to fear of aspirating, informed lime kiln worker.
[2018-09-14] MEDS ORDERED: MORPHINE SULFATE 10 MG/ML VIAL ONE (14:07)
--- NOTE | 2018-09-14 15:40 | NUR ---
MD Silva at bed side.
--- NOTE | 2018-09-14 15:51 | NUR ---
MD Silva new order to recheck CMP, Magnesium to make sure Magnesium is closer to 2 and potassium closer to 4. IV Amiodarone for 24 hours then switched to Amiodarone 200 mg PO daily. Orders placed.
--- NOTE | 2018-09-14 16:00 | NUR ---
MD Silva ordered to report to primary if potassium and magnesium is still too low to get replacements.
--- NOTE | 2018-09-14 16:10 | NUR ---
Stated once IV drip is complete, may go to the floor.
[2018-09-14 16:36] LABS: ALANINE AMINOTRANSFERASE 18 U/L (12-78); ALBUMIN 1.5 g/dL (3.4-4.8); ANION GAP 5 (5-15); ASPARTATE AMINOTRANSFERASE 18 U/L (10-37); CALCIUM 8.8 mg/dL (8.4-11.0); CHLORIDE 103 mmol/L (98-107); CREATININE 0.49 mg/dL (0.55-1.30); GLUCOSE 221 mg/dL (70-99); POTASSIUM 3.2 mmol/L (3.5-5.1); SODIUM SERUM 138 mmol/L (136-145); TOTAL BILIRUBIN 0.4 mg/dL (0.0-1.0); UREA NITROGEN, BLOOD 12 mg/dL (8-21)
--- NOTE | 2018-09-14 17:37 | NUR ---
Informed [place] latest potassium at 3.2 and magnesium sulfate of 1.1. New order of IV 4 grams 1 time then recheck magnesium tomorrow morning.
[2018-09-14] MEDS ORDERED: MAGNESIUM SULFATE IN WATER 100 ML IV ONE ×2 (17:45→18:50)
--- NOTE | 2018-09-14 19:28 | NUR ---
Endorsed patient and gave report to [facility] shift nurse. Introduced patient to [facility] shift nurse. Said goodbye to patient. Patient in bed in no acute distress side rails x 3 up call light with in reach.
--- NOTE | 2018-09-14 19:50 | NUR ---
PM Assessment Pt in bed, AAO. SR shown on monitor. Pt on 10L Oximizer saturating in the low-mid 90s. Pt tolerating well. No s/s of distress noted. Pt has Port-a-cath to the right subclavian, a LFA 20g and a Rt Wrist 22g. IV sites C/D/I. no s/s of infiltration noted. Pt has Amiodarone Drip running @1mg/min. Espinoza catheter in place draining clear/yellow urine to gravity. Bed locked in lowest position, safety precautions in place, and call light in reach. Will continue to monitor.
--- NOTE | 2018-09-14 21:00 | NUR ---
Amiodarone Amiodarone Drip titrated down to 0.5mg/min per order protocol. Pt tolerating well. HR is 90. Will continue to follow med order protocol.
[2018-09-15] VITALS (24 sets, daily range): BP systolic 98–135
[2018-09-15] MEDS: PIPERACILLIN/TAZO 3.375/DEX-IS 50 ML IV SCH ×4 (00:37→17:40)
[2018-09-15] MEDS: DILTIAZEM HCL 60 MG TABLET PO SCH ×4 (00:37→17:41)
[2018-09-15] MEDS: LEVALBUTEROL HCL 0.63 MG/3 ML VIAL.NEB INH SCH ×4 (00:56→18:57)
[2018-09-15] MEDS: IPRATROPIUM BROM 0.5 MG/2.5 ML VIAL.NEB (ATROVENT) INH SCH ×4 (00:56→18:57)
--- NOTE | 2018-09-15 01:26 | NUR ---
RN Rounds Pt in bed asleep. Pt remains SR. Pt switched from Oximizer to Simple Mask @10L. Pt saturating in the low 90s. No s/s of distress noted. Pt not tachypneic. Will continue to monitor.
--- NOTE | 2018-09-15 04:05 | NUR ---
RN Rounds Pt in bed asleep, no s/s of distress noted. VSS. Will continue to monitor.
[2018-09-15] MEDS: ALBUTEROL SULFATE 0.083% 2.5 MG/3 ML VIAL.NEB INH PRN (04:40)
--- NOTE | 2018-09-15 04:53 | NUR ---
MD JOELLE ZAVALA FOR ORDERS, SPOKE WITH DR. VALERIO, SPOKE WITH KERA Addendum: 09/15/18 at 0456 by Lillian Worrell SD/ * DR. VALERIO IS COVERING FOR DR. ZAVALA, * SPOKE WITH KERA
--- NOTE | 2018-09-15 05:00 | NUR ---
MD Called Spoke with Dr. Mathur regarding Pt resp. status. New orders received, will carry out as ordered.
--- NOTE | 2018-09-15 05:20 | NUR ---
Pt switched to High Flow Mask @36L FIO2 100%. Pt tolerating well. Saturations in the mid 90s.
--- NOTE | 2018-09-15 05:30 | NUR ---
RN Rounds At 0440, pt became tachycardic in the 120-130s, tachypneic 30-40s, and c/o of SOB. Saturating in the mid-high 80s. Simple mask increased to 12L. RT called for breathing Tx. Pt still SOB after Tx, Dr. Mathur called and Pt switched to High-Flow O2. Pt now tolerating better, no s/s of distress noted. Pt states, she does not have SOB.
[2018-09-15 05:55] LABS: BASOPHILS # (AUTO) 0.1 K/uL (0.0-0.2); BASOPHILS % (AUTO) 0.9 % (0.0-2.0); EOSINOPHILS % (AUTO) 0.4 % (0.0-4.0); LYMPHOCYTES # (AUTO) 0.3 K/uL (1.0-5.5); LYMPHOCYTES % (AUTO) 4.6 % (20.5-51.5); MEAN CORPUSCULAR HEMOGLOBIN 28 pg (27-31); MEAN CORPUSCULAR HGB CONC 32 % (32-36); MEAN CORPUSCULAR VOLUME 87 fL (79.0-98.0); MONOCYTES # (AUTO) 0.2 K/uL (0.0-1.0); MONOCYTES % (AUTO) 3.1 % (1.7-9.3); NEUTROPHILS # (AUTO) 6.8 K/uL (1.8-7.7); PLATELET COUNT (AUTO) 309 K/uL (130-430); RED BLOOD CELL COUNT(AUTO) 3.57 MIL/uL (4.2-6.2); RED CELL DISTRIBUTION WIDTH 17.8 % (9.0-15.0); WHITE BLOOD COUNT (AUTO) 7.4 K/uL (4.8-10.8)
[2018-09-15] MEDS: HYDROCORTISONE SOD SUCC 100 MG/2 ML VIAL IVP SCH ×3 (06:14→21:45)
[2018-09-15 06:24] LABS: ALANINE AMINOTRANSFERASE 17 U/L (12-78); ALBUMIN 1.7 g/dL (3.4-4.8); ANION GAP 8 (5-15); ASPARTATE AMINOTRANSFERASE 22 U/L (10-37); CALCIUM 9.3 mg/dL (8.4-11.0); CHLORIDE 101 mmol/L (98-107); CREATININE 0.64 mg/dL (0.55-1.30); GLUCOSE 207 mg/dL (70-99); POTASSIUM 3.4 mmol/L (3.5-5.1); SODIUM SERUM 139 mmol/L (136-145); TOTAL BILIRUBIN 0.2 mg/dL (0.0-1.0); UREA NITROGEN, BLOOD 13 mg/dL (8-21)
--- NOTE | 2018-09-15 06:45 | NUR ---
Closing Note Pt in bed, AAO. SR/ST shown on monitor. Pt on High-Flow @36L FIO2 100%. Saturating in the mid 90s. IV sites remain C/D/I. Amiodarone drip @ 0.5mg/min. Espinoza catheter in place draining urine to gravity. No s/s of distress noted at this. Pt able to make needs known. Bed locked in lowest position, call light in reach, safety precautions in place. Will endorse to oncoming RN.
--- NOTE | 2018-09-15 07:08 | NUR ---
Endorsement Report given to oncoming RN at bedside via SBAR approach.
--- NOTE | 2018-09-15 07:40 | NUR ---
RT Millie reported FIO2 adjusted to 90%.
[2018-09-15] MEDS ORDERED: AMIODARONE HCL 200 MG TABLET PO SCH (09:00)
[2018-09-15] MEDS: KCL 20 mEq in D5/0.45NS 1000mL 1,000 ML IV SCH ×2 (09:27→22:06)
[2018-09-15] MEDS: AMIODARONE HCL 200 MG TABLET PO SCH (09:28)
[2018-09-15] MEDS: MORPHINE 4 MG/ML INJ. SYRINGE IVP PRN ×2 (09:37→18:39)
[2018-09-15] MEDS: VANCOMYCIN HCL 750 MG/NS 250 ML IV SCH ×2 (10:53→22:06)
--- NOTE | 2018-09-15 11:14 | NUR ---
RT NOTES FIO2 to 80% per titration order. No adverse reactions noted. Will monitor pt. Addendum: 09/15/18 at 1115 by Millie Monk RT Amended: Links added.
--- NOTE | 2018-09-15 12:18 | NUR ---
Pts the [facility] feeding pt with HOB up. Pt started to cough during eating. Pt orally suctioned with yankuer but nothing to be suctioned. Pt has an extremely weak cough. 02 sats 89% on 80% hi flow 02. RT called and pt placed back on 100% hi flow 02. ST on monitor. RR 31 with sats 93% on 100% 02. [facility] requesting that we do something, however I tried to explain that there is nothing we can do, except to monitor her at this time. I recommended that she not feed her anymore at this time.
--- NOTE | 2018-09-15 12:20 | NUR ---
RT NOTES Called to bedside, due to low sat. Increased FIO2 to 100%
--- NOTE | 2018-09-15 12:30 | NUR ---
Paged MD Joseph regarding patient refusal of SCDs despite education and low urine output.
--- NOTE | 2018-09-15 12:40 | NUR ---
RT reported FIO2 adjusted to 100%. Patient tolerating change.
--- NOTE | 2018-09-15 13:30 | NUR ---
RT reported FI02 to 90%. Tolerating change.
--- NOTE | 2018-09-15 14:00 | NUR ---
Md Joseph paged.
--- NOTE | 2018-09-15 15:00 | NUR ---
Amiodarone drip turned off.
[2018-09-15] MEDS ORDERED: AMIODARONE HCL 200 MG TABLET PO ONE (16:00)
--- NOTE | 2018-09-15 16:20 | NUR ---
MD Joseph called back, informed patient lung sounds crackles increased in all lobes, pitting edema 2+ on left arm, urine output only 150 ml through out day. Patient refused SCDs x 3. New order lasix 40 mg IVP once, decreased IV fluids to 50 ml/hr, lovenox 1mg/kg/per pharmacy dosing. Orders placed. Patient denies abdominal discomfort.
--- NOTE | 2018-09-15 16:30 | NUR ---
IV fluids decreased to 50 ml/hr.
[2018-09-15] MEDS ORDERED: *LOVENOX 1MG/KG Q12H/PHARMACY XX SCH ×2 (17:15→21:00)
[2018-09-15] MEDS ORDERED: FUROSEMIDE 40 MG/4 ML VIAL IVP ONE (17:30)
--- NOTE | 2018-09-15 19:11 | NUR ---
Endorsed patient and gave report to NOC shift. Patient in bed. In no acute distress. Side rails x 3 up. Call light with in reach.
--- NOTE | 2018-09-15 20:00 | NUR ---
AWAKE, ALERT. IN NO APPARENT DISTRESS. ON HIGH FLOW O2 AT 35L/MIN/NC, FIO2 90%. POX 93%. WHITE CATH PATENT DRAINING CLEAR YELLOW URINE TO GRAVITY. SR W/ PAC'S. KAYLA HANSON AND MONI FLORES.
[2018-09-15] MEDS: ENOXAPARIN SODIUM 80 MG/0.8 ML SYRINGE SUBCUT SCH (21:47)
[2018-09-15] MEDS ORDERED: ENOXAPARIN SODIUM 80 MG/0.8 ML SYRINGE ONE (21:52)
--- NOTE | 2018-09-15 22:00 | NUR ---
DOZES ON AND OFF. SONS MARGIE AND MONI LEFT FOR HOME EARLIER. REPOSITIONED.
[2018-09-16] VITALS (25 sets, daily range): BP systolic 116–147
--- NOTE | 2018-09-16 | NUR ---
EYES CLOSED BUT EASILY AROUSABLE. DENIES ACUTE PAIN BUT ADMITS TO GENERALIZED DISCOMFORT. TURNED. UO GOOD.
[2018-09-16] MEDS: PIPERACILLIN/TAZO 3.375/DEX-IS 50 ML IV SCH ×5 (00:03→23:38)
[2018-09-16] MEDS: DILTIAZEM HCL 60 MG TABLET PO SCH ×5 (00:04→23:38)
[2018-09-16] MEDS: IPRATROPIUM BROM 0.5 MG/2.5 ML VIAL.NEB (ATROVENT) INH SCH ×4 (01:10→19:37)
[2018-09-16] MEDS: LEVALBUTEROL HCL 0.63 MG/3 ML VIAL.NEB INH SCH ×4 (01:11→19:36)
--- NOTE | 2018-09-16 02:00 | NUR ---
SOUNDLY ASLEEP. NO DISTRESS NOTED.
--- NOTE | 2018-09-16 04:00 | NUR ---
SLEPT INTERMITTENTLY. REPOSITIONED. VSS. UO GOOD.
--- NOTE | 2018-09-16 04:45 | NUR ---
PT TOOK O2 OFF, ALLY FLOREZ REPLACED. PT DESATING TO 86. INCREASED 02 TO 100, SATING AT 91-92%. WILL CONTINUE TO MONITOR. Addendum: 09/16/18 at 0500 by Rylee Montano RT Amended: Links added. Addendum: 09/16/18 at 0515 by Rylee Montano RT ALLY FLOREZ AWARE OF 02 INCREASE TO 100%
[2018-09-16] MEDS: MORPHINE 4 MG/ML INJ. SYRINGE IVP PRN ×3 (04:56→23:34)
--- NOTE | 2018-09-16 05:00 | NUR ---
MORPHINE 4 MG IVP GIVEN FOR ANXIETY AND GENERAL DISCOMFORT.
[2018-09-16] MEDS: HYDROCORTISONE SOD SUCC 100 MG/2 ML VIAL IVP SCH ×3 (05:39→21:54)
[2018-09-16 05:43] LABS: BASOPHILS % (AUTO) 0.1 % (0.0-2.0); EOSINOPHILS # (AUTO) 0.1 K/uL (0.0-0.4); EOSINOPHILS % (AUTO) 0.9 % (0.0-4.0); HEMATOCRIT 30.2 % (36-48); LYMPHOCYTES # (AUTO) 0.3 K/uL (1.0-5.5); LYMPHOCYTES % (AUTO) 4.9 % (20.5-51.5); MEAN CORPUSCULAR HEMOGLOBIN 29 pg (27-31); MEAN CORPUSCULAR HGB CONC 33 % (32-36); MEAN CORPUSCULAR VOLUME 88 fL (79.0-98.0); MONOCYTES # (AUTO) 0.2 K/uL (0.0-1.0); MONOCYTES % (AUTO) 3.3 % (1.7-9.3); NEUTROPHILS # (AUTO) 5.8 K/uL (1.8-7.7); NEUTROPHILS % (AUTO) 90.8 % (40.0-70.0); PLATELET COUNT (AUTO) 254 K/uL (130-430); RED BLOOD CELL COUNT(AUTO) 3.44 MIL/uL (4.2-6.2); RED CELL DISTRIBUTION WIDTH 17.8 % (9.0-15.0); WHITE BLOOD COUNT (AUTO) 6.3 K/uL (4.8-10.8)
--- NOTE | 2018-09-16 06:00 | NUR ---
RESTING. FIO2 100 %. POX 95%. TURNED Q2 HRS AND PRN. UO GOOD. REMAINS IN GUARDED CONDITION.
[2018-09-16 06:04] LABS: ALANINE AMINOTRANSFERASE 17 U/L (12-78); ALBUMIN 1.7 g/dL (3.4-4.8); ANION GAP 6 (5-15); ASPARTATE AMINOTRANSFERASE 18 U/L (10-37); CALCIUM 8.8 mg/dL (8.4-11.0); CHLORIDE 100 mmol/L (98-107); CREATININE 0.58 mg/dL (0.55-1.30); GLUCOSE 184 mg/dL (70-99); SODIUM SERUM 139 mmol/L (136-145); TOTAL BILIRUBIN 0.2 mg/dL (0.0-1.0); UREA NITROGEN, BLOOD 11 mg/dL (8-21)
[2018-09-16 06:12] LABS: POTASSIUM 2.7 mmol/L (3.5-5.1)
--- NOTE | 2018-09-16 06:19 | NUR ---
PAGED PAGING THE MAIL HANDLER ASSISTANT PHYSICIAN; DR. RIOS SPOKE WITH LUCINDA
--- NOTE | 2018-09-16 06:25 | NUR ---
DR RIOS NOTIFIED OF POTASSIUM 2.7. NEW ORDERS GIVEN TO BE CARRIED OUT.
--- NOTE | 2018-09-16 07:20 | NUR ---
Opening Note Received plan of care from endorsing nurse Louis. Completed patient round.
[2018-09-16] MEDS ORDERED: POTASSIUM CHLORIDE 40 MEQ in NS 250 ML IV ONE (07:30)
[2018-09-16] MEDS: AMIODARONE HCL 200 MG TABLET PO SCH (09:00)
[2018-09-16] MEDS: ENOXAPARIN SODIUM 80 MG/0.8 ML SYRINGE SUBCUT SCH ×2 (09:03→21:55)
[2018-09-16] MEDS ORDERED: FUROSEMIDE 20 MG/2 ML VIAL IVP ONE (10:00)
[2018-09-16] MEDS ORDERED: POTASSIUM CHLORIDE 20 MEQ TAB.PRT.SR PO ONE (10:00)
[2018-09-16] MEDS: VANCOMYCIN HCL 750 MG/NS 250 ML IV SCH ×2 (10:31→22:35)
--- NOTE | 2018-09-16 19:30 | NUR ---
closing note Provided plan of care to endorsing nurse Louis RN. Completed patient round.
--- NOTE | 2018-09-16 20:00 | NUR ---
AWAKE, ALERT, ORIENTED X4. IN NO APPARENT DISTRESS. VSS. DENIES ACUTE PAIN. BREATH SOUNDS WITH CRACKLES. ON O2 AT 35L/MIN/HIGH FLOW NASAL CANNULA. DESATURATES AT TIMES. PLACED ON 100% FIO2, ABOUT 36L/MIN/ HIGH FLOW NASAL CANNULA. WHITE CATH PATENT DRAINING CLEAR ABIMAEL URINE TO GRAVITY. BOWEL SOUNDS (+). PULSES PALPABLE. SKIN W/D. COLOR PALE. HOB UP TO COMFORT. SIDE RAILS UP. CALL LIGHTS WITHIN REACH. SR W/ PAC'S & PVC'S. SON AT BEDSIDE VISITING.
[2018-09-16] MEDS: ALBUTEROL SULFATE 0.083% 2.5 MG/3 ML VIAL.NEB INH PRN (21:44)
--- NOTE | 2018-09-16 22:00 | NUR ---
SON LEFT FOR HOME EARLIER. HS CARE. TURNED AND REPOSITIONED.
[2018-09-16] MEDS ORDERED: ENOXAPARIN SODIUM 80 MG/0.8 ML SYRINGE ONE (22:02)
--- NOTE | 2018-09-16 23:34 | NUR ---
MORPHINE 4 MG IVP GIVEN FOR C/O ANXIETY AND GENERAL DISCOMFORT.
[2018-09-17] VITALS (25 sets, daily range): BP systolic 81–145
--- NOTE | 2018-09-17 | NUR ---
BOUTS OF RESTLESSNESS. CONFUSED AT TIMES. TAKES OFF HIGH FLOW NASAL CANNULA. DESATURATES. INSTRUCTED NOT TO TAKE OFF NASAL CANNULA. FREQUENT INTERVENTIONS MADE. NEEDED FREQUENT REMINDERS.
[2018-09-17] MEDS: LEVALBUTEROL HCL 0.63 MG/3 ML VIAL.NEB INH SCH ×4 (00:43→19:40)
[2018-09-17] MEDS: IPRATROPIUM BROM 0.5 MG/2.5 ML VIAL.NEB (ATROVENT) INH SCH ×4 (00:43→19:40)
--- NOTE | 2018-09-17 01:28 | NUR ---
called Dr. Rain's exchange for orders. Spoke to Nora.
--- NOTE | 2018-09-17 01:55 | NUR ---
called again for Dr. Rain to be paged by service. Spoke to Nora.
--- NOTE | 2018-09-17 02:20 | NUR ---
DR GARAY RETURNED CALL. NOTIFIED OF HR, VS, STATUS AND CONDITION. NEW ORDERS GIVEN AND IMPLEMENTED.
--- NOTE | 2018-09-17 02:30 | NUR ---
CARDIZEM DRIP STARTED AT 5 MG/HR.
[2018-09-17] MEDS ORDERED: DILTIAZEM HCL 125 MG/25 ML VIAL IV ONE (02:34)
--- NOTE | 2018-09-17 02:45 | NUR ---
BP 132/68, HR 158, CARDIZEM DRIP INCREASED TO 10 MG/HR.
--- NOTE | 2018-09-17 03:00 | NUR ---
HR 160, BP 145/92, CARDIZEM DRIP INCREASED TO 15 MG/HR. COMPLAINS OF PAIN ALL OVER AND ANXIETY. MORPHINE 6 MG IVP GIVEN.
[2018-09-17] MEDS: MORPHINE 4 MG/ML INJ. SYRINGE IVP PRN ×5 (03:08→22:45)
[2018-09-17] MEDS: DILTIAZEM HCL 125 MG in D5W 100 ML IV SCH ×3 (03:11→18:17)
[2018-09-17] MEDS: DILTIAZEM HCL 60 MG TABLET PO SCH ×4 (05:14→23:52)
[2018-09-17] MEDS: HYDROCORTISONE SOD SUCC 100 MG/2 ML VIAL IVP SCH ×3 (05:14→21:23)
[2018-09-17] MEDS: PIPERACILLIN/TAZO 3.375/DEX-IS 50 ML IV SCH ×4 (05:14→23:52)
[2018-09-17] MEDS: KCL 20 mEq in D5/0.45NS 1000mL 1,000 ML IV SCH (05:15)
[2018-09-17 05:26] LABS: HEMATOCRIT 33.1 % (36-48); HEMOGLOBIN 10.8 g/dL (12.0-16.0); MEAN CORPUSCULAR HEMOGLOBIN 29 pg (27-31); MEAN CORPUSCULAR HGB CONC 33 % (32-36); MEAN CORPUSCULAR VOLUME 88 fL (79.0-98.0); PLATELET COUNT (AUTO) 366 K/uL (130-430); RED BLOOD CELL COUNT(AUTO) 3.76 MIL/uL (4.2-6.2); RED CELL DISTRIBUTION WIDTH 18.1 % (9.0-15.0)
[2018-09-17 05:46] LABS: ALBUMIN 1.7 g/dL (3.4-4.8); ANION GAP 6 (5-15); CALCIUM 9.1 mg/dL (8.4-11.0); CHLORIDE 101 mmol/L (98-107); CREATININE 0.59 mg/dL (0.55-1.30); GLUCOSE 153 mg/dL (70-99); POTASSIUM 3.2 mmol/L (3.5-5.1); SODIUM SERUM 141 mmol/L (136-145); UREA NITROGEN, BLOOD 11 mg/dL (8-21)
--- NOTE | 2018-09-17 06:00 | NUR ---
UO 400CC OUT. POX 89%, MOUTH BREATHER. RT CHANGED O2 TO 100% NON-REBREATHER MASK. POX IMPROVED TO 94%. HR STILL IN THE 150'S. CARDIZEM DRIP AT 15 MG/HR. REMAINS IN GUARDED CONDITION.
[2018-09-17 06:09] LABS: BAND % (MANUAL) 6 % (0-6); BASOPHILS % (MANUAL) 0 % (0-2); EOSINOPHILS % (MANUAL) 2 % (0-7); LYMPHOCYTES % (MANUAL) 6 % (20-46); MONOCYTES % (MANUAL) 2 % (0-11)
[2018-09-17 06:10] LABS: TOTAL BILIRUBIN 0.3 mg/dL (0.0-1.0)
[2018-09-17 06:11] LABS: ASPARTATE AMINOTRANSFERASE 36 U/L (10-37)
[2018-09-17 06:12] LABS: ALANINE AMINOTRANSFERASE 24 U/L (12-78)
--- NOTE | 2018-09-17 07:20 | NUR ---
AM Assessment Pt received from night RN using SBAR. Pt laying in bed with eyes closed, pts son is at bedside. 100% non-rebreather mask with oxygen saturation of 93%. Heart rate of 154. Espinoza cath in place draining yellow urine to gravity.
--- NOTE | 2018-09-17 08:08 | NUR ---
MD Dr. Chisholm at bedside with pt.
[2018-09-17] MEDS: AMIODARONE HCL 200 MG TABLET PO SCH (09:06)
[2018-09-17] MEDS: ENOXAPARIN SODIUM 80 MG/0.8 ML SYRINGE SUBCUT SCH ×2 (09:07→21:22)
--- NOTE | 2018-09-17 09:32 | NUR ---
MD Dr. De Leon at bedside with pt and pts family.
--- NOTE | 2018-09-17 10:15 | NUR ---
Repositioning Pts family requesting for pt to not be repositioned at this time.
--- NOTE | 2018-09-17 12:04 | NUR ---
Lock Installer Note Patient was made DNR this am. Spoke with patient's nurse Jen. No apparent Lock Installer needs. [employer] met with patient's son, Milo, at bedside. He stated he was coping well and did not have any needs at this time. Patient is confused. I told him I was available if I could be of assistance. Will remain available.
[2018-09-17] MEDS: VANCOMYCIN HCL 750 MG/NS 250 ML IV SCH ×2 (12:16→22:03)
--- NOTE | 2018-09-17 12:57 | NUR ---
PATIENT RESTING: Patient resting quietly with family at bedside.
--- NOTE | 2018-09-17 13:00 | NUR ---
Nutrition F/U RD reviewed pt's current EMR including diet Hx, physician notes, nursing notes, pertinentn labs/meds/procedures, card trends, and care activity. Current Diet Order: CCHO, Glucerna BID x3 days + pureed x2 days -- 2 active, separate diet orders Subjective Information: Pt was seen resting in bed w/ son at bedside. He stated that pt has not been eating much, but has enjoyed a bit of yogurt and cream of wheat when she feels like eating. Per RN, pt has had a lack of appetite, but takes meds w/ a bit of applesauce, and has been receiving morphine PRN. Pt was made DNR today. No changes in wt since admission per EMR records. Current % PO 42% average x6 meals Estimated Energy Expenditure (kcals/day) 9423-3897 kcal/day (30-35 kcal/kg Adj IBW for CA/sepsis resolved per physician notes) Estimated Protein Required (g/day) 86-114 gm/day (1.5-2 gm/kg Adj IBW for CA/sepsis resolved per physician notes) Estimated Fluid Required (l/day) 1.4 L/day (25ml/kg Adj IBW for Geriatric maintenance) Problem/Etiology/Signs/Symptoms Increased nutrient needs r/t metabolic demands AEB estimated calories and protein needs. *ongoing Increased risk for malnutrition r/t catabolic illness AEB poor PO intake for 2 months and unintentional weight loss per pt's report. *ongoing Expected Outcomes/Goals Monitor appetite and PO intake w/ goal of pt meeting at least 80% of estimated nutritional needs, labs trending WNL, normal GI function, skin integrity/wt maintenance. Dietitian Recommendations *Recommend continuing pureed diet (1/2 portions) * D/C CCHO, mechanical soft, finely chopped diet w/ Glucerna BID Follow Up High Risk: F/U in 2-3 days
--- NOTE | 2018-09-17 13:05 | NUR ---
Dietitian Recommendations *Recommend continuing pureed diet (1/2 portions) * D/C CCHO, mechanical soft, finely chopped diet w/ Glucerna BID LP, RD Please refer to Nutrition F/U for details.
--- NOTE | 2018-09-17 15:02 | NUR ---
Wound Care Pts sons requesting no wound care being performed today, wanting to "not disturb" pt.
--- NOTE | 2018-09-17 17:15 | NUR ---
Closing Notes Pt endorsed to night RN using SBAR. Pts family is at bedside.
--- NOTE | 2018-09-17 17:41 | NUR ---
CHG Pts family declining CHG at this time, wanting to "let her rest".
--- NOTE | 2018-09-17 18:45 | NUR ---
Stopped Antibiotic Stopped Zosyn due to only one IV access for pt, incompatible with Cardizem. Increased HR to 159, restated Cardizem.
--- NOTE | 2018-09-17 19:30 | NUR ---
ON CARDIZEM DRIP AT 15 MG/HR.
--- NOTE | 2018-09-17 20:00 | NUR ---
LETHARGIC. DROWSY BUT BUT AROUSABLE. DENIES ACUTE PAIN. BREATH SOUNDS WITH CRACKLES. BOWEL SOUNDS (+). PULSES PALPABLE. SKIN W/D. COLOR PALE. HOB UP TO COMFORT. SIDE RAILS UP X2. CALL LIGHTS WITHIN REACH. A-FLUTTER WITH VARIABLE VENTRICULAR RESPONSE. WHITE CATH PATENT DRAINING CLEAR ABIMAEL URINE TO GRAVITY.
--- NOTE | 2018-09-17 20:30 | NUR ---
CONVERTED TO SR W/PAC'S , HR IN THE 80'S. CARDIZEM DRIP OFF AT THIS TIME.
--- NOTE | 2018-09-17 21:00 | NUR ---
YOUNGER SON MONI LEFT FOR HOME. OLDER SON MARGIE STAYED AT BEDSIDE.
--- NOTE | 2018-09-17 22:45 | NUR ---
MORPHINE 4 MG IVP GIVEN FOR C/O ABDOMINAL PAIN.
[2018-09-18] VITALS (24 sets, daily range): BP systolic 91–145
--- NOTE | 2018-09-18 | NUR ---
DOZES ON AND OFF. VSS. MOANS AT TIMES.
[2018-09-18] MEDS: LEVALBUTEROL HCL 0.63 MG/3 ML VIAL.NEB INH SCH ×4 (01:08→19:26)
[2018-09-18] MEDS: IPRATROPIUM BROM 0.5 MG/2.5 ML VIAL.NEB (ATROVENT) INH SCH ×4 (01:09→19:26)
--- NOTE | 2018-09-18 02:00 | NUR ---
SLEPT INTERMITTENTLY. DESATURATES TO HIGH 80'S.
[2018-09-18] MEDS: MORPHINE 4 MG/ML INJ. SYRINGE IVP PRN ×3 (03:42→14:59)
--- NOTE | 2018-09-18 03:45 | NUR ---
MOANS MORE LOUDER. MORPHINE 6 MG IVP GIVEN FOR GENERALIZED PAIN AND DISCOMFORT. CHRISTOPH HANSON AT BEDSIDE.
[2018-09-18] MEDS: KCL 20 mEq in D5/0.45NS 1000mL 1,000 ML IV SCH ×2 (04:59→21:00)
--- NOTE | 2018-09-18 05:00 | NUR ---
MOANING AND GROANING. AGREED TO BE TURNED AND REPOSITIONED. BACK CARE GIVEN. OSMANY WELL.
--- NOTE | 2018-09-18 05:30 | NUR ---
SON MONI IN, OTHER SON MARGIE LEFT FOR HOME.
[2018-09-18] MEDS: DILTIAZEM HCL 60 MG TABLET PO SCH ×4 (06:00→17:40)
--- NOTE | 2018-09-18 06:00 | NUR ---
LETHARGIC. UNABLE TO SWALLOW 0600 PO PILL. CHAPSTICK APPLIED TO LIPS BY CHRISTOPH MONTENEGRO. UO 30CC. STILL MOANS AND GROANS. REMAINS IN GUARDED CONDITION.
[2018-09-18] MEDS: PIPERACILLIN/TAZO 3.375/DEX-IS 50 ML IV SCH ×3 (06:04→17:40)
[2018-09-18] MEDS: HYDROCORTISONE SOD SUCC 100 MG/2 ML VIAL IVP SCH ×3 (06:04→23:07)
--- NOTE | 2018-09-18 07:05 | NUR ---
Opening Note Patient received resting in bed with son @ bedside. Patient on diagnostic cardiac sonographer with NSR. Patient on 100% non-rebreather mask. No signs of distress noted @ this time. Patient has a right subclavian port-a-cath and a left forearm 20 gauge IV infusing D5 1/2 NS + 20 meq KCl @ 50 ml/hr. Patient has a payton catheter in place draining yellow urine. Safety precautions enforced. Will continue to monitor.
[2018-09-18] MEDS: ENOXAPARIN SODIUM 80 MG/0.8 ML SYRINGE SUBCUT SCH ×2 (08:38→23:11)
[2018-09-18] MEDS: AMIODARONE HCL 200 MG TABLET PO SCH (09:00)
--- NOTE | 2018-09-18 09:04 | NUR ---
Dr. Chisholm at bedside with pt's son discussing plan of care.
[2018-09-18] MEDS: VANCOMYCIN HCL 750 MG/NS 250 ML IV SCH ×2 (10:53→23:08)
[2018-09-18] MEDS: MORPHINE 2 MG/ML INJ. SYRINGE IVP PRN ×3 (12:11→22:22)
--- NOTE | 2018-09-18 16:00 | NUR ---
Patient and family requested not to reposition patient as much to prevent her from being uncomfortable and in pain. Wound pictures not taken due to not wanting to be turned. CHG bath also not performed for this reason. Patient and family made aware of risks of skin breakdown. Patient and family verbalizes understanding.
--- NOTE | 2018-09-18 19:15 | NUR ---
Closing Note Patient endorsed using SBAR format. Patient in no signs of distress @ this time.
--- NOTE | 2018-09-18 20:00 | NUR ---
ASSESSMENT Pt resting with family @ bedside. Pt oriented to self. NRB mask in use. Generalized edema present. Left forearm with 20ga IVF infusing. Good blood return noted. Pt request not to have position changed.
--- NOTE | 2018-09-18 21:30 | NUR ---
PORTACATH Portacath accessed, site flushes well.
[2018-09-19] VITALS (24 sets, daily range): BP systolic 87–122
[2018-09-19] MEDS: MORPHINE 4 MG/ML INJ. SYRINGE IVP PRN ×7 (00:04→15:10)
[2018-09-19] MEDS: LEVALBUTEROL HCL 0.63 MG/3 ML VIAL.NEB INH SCH ×3 (00:45→13:00)
[2018-09-19] MEDS: IPRATROPIUM BROM 0.5 MG/2.5 ML VIAL.NEB (ATROVENT) INH SCH ×3 (00:45→13:00)
[2018-09-19] MEDS: PIPERACILLIN/TAZO 3.375/DEX-IS 50 ML IV SCH ×2 (02:02→06:59)
--- NOTE | 2018-09-19 05:09 | NUR ---
WOUNDS Unable to assess wounds, Pt does not want to change position, family does not want patient to be moved.
[2018-09-19] MEDS: DILTIAZEM HCL 60 MG TABLET PO SCH ×4 (06:00→17:14)
[2018-09-19] MEDS: HYDROCORTISONE SOD SUCC 100 MG/2 ML VIAL IVP SCH (06:23)
[2018-09-19] MEDS: KCL 20 mEq in D5/0.45NS 1000mL 1,000 ML IV SCH (06:24)
--- NOTE | 2018-09-19 07:15 | NUR ---
Opening Note Received bedside report from Richelle CANALES for continuation of care. Received patient resting in bed, no signs or symptoms of acute distress noted. Patient's son at bedside. Bed locked in lowest position, bed alarm on, and call light within reach.
--- NOTE | 2018-09-19 08:15 | NUR ---
Wound Care/CHG/Repositioning Patient's sons requesting no wound care, no CHG bath, and no repositioning because they "do not want to disturb patient and do not want her to be in pain." Education provided about risks of no wound care, CHG, and repositioning. Patient's sons verbalized understanding.
[2018-09-19] MEDS: ENOXAPARIN SODIUM 80 MG/0.8 ML SYRINGE SUBCUT SCH ×2 (08:18→21:00)
[2018-09-19] MEDS: AMIODARONE HCL 200 MG TABLET PO SCH (08:19)
--- NOTE | 2018-09-19 08:43 | NUR ---
Dr. Chisholm in to see patient and updating patient's son on patient status and plan of care.
--- NOTE | 2018-09-19 09:23 | NUR ---
Dr. De Leon at bedside examining patient and updating son on patient status and plan of care. New orders received.
--- NOTE | 2018-09-19 13:25 | NUR ---
RT NOTES Son refused HHN tx at this time, just wants his mom to be comfortable. RN aware.
[2018-09-19] MEDS ORDERED: MORPHINE I.V. DRIP 100 ML IV PRN (13:30)
--- NOTE | 2018-09-19 15:45 | NUR ---
Morphine Drip initiated at 2 mg/h per patient's sons request and MD order.
--- NOTE | 2018-09-19 16:30 | NUR ---
WOUND RE-EVALUATION: Wound Consult received from Dr. Chisholm. Thank you, Dr. Chisholm, for the consult. Patient received in a [place]una Bed with an Isoflex CESARIO mattress with low air loss therapy initiated. Patient is DNR with comfort measures, and on a Morphine drip at 2 Mg/Hr. Jimenez Score is a 12. Past Medical History: Stage IV Lung Cancer, Diabetes Mellitus, Hypertension, Hyperlipidemia, COPD, lung cancer surgery, recurrent pleural effusion and postobstructive pneumonia. Intrinsic factors that delay wound healing: Stage IV Lung Cancer, Diabetes Mellitus, COPD. Extrinsic factors that delay wound healing: Decreased mobility. Microbiology: Blood culture results 2 negative. Wound Assessment: Sites not assessed. Per ALLY Dotson, patient's son requested no wound care, only comfort care. Wound Care will remain available if any needs arise or patient's son changes his mind about no wound care. 1. Left Buttock: Shearing injury. 2. Left Buttock, inferior to Wound 1: Shearing injury. Recommend continue if able: Cleanse wounds with normal saline. Pat dry. Apply moisture barrier cream to simon-wound. Apply Hydrogel to any portion of wounds not covered by moisture barrier cream. Cover with foam dressing. Perform wound care daily, and as needed for dressing soiling or dislodgement. Also recommend continue: Encourage and assist patient with repositioning side to side only every 2 hours with pillow support, and off-load pressure areas with pillows for pressure re-distribution (place one pillow under her back and one pillow underneath pelvis, ensuring that buttock area floats, and you can place your hand easily underneath the buttock). Offload, elevate and float bilateral heels with one pillow lengthwise under each extremity at all times. Perform skin care and monitor skin integrity Q shift. Use moisture barrier cream on buttocks and other moisture susceptible areas QID and as needed for soiling. Maintain patient on a low air-loss mattress.
--- NOTE | 2018-09-19 19:02 | NUR ---
Endorsement Endorsed bedside report to oncoming RN using SBAR approach for continuation of care.
--- NOTE | 2018-09-19 19:55 | NUR ---
PM Assessment Pt in bed, obtunded. Unable to follow commands at this time. ST shown on the monitor. Pt on O2 mask, FIO2 98%. Pt saturating in the low-mid 90s. Pt has RU chest Port-a-Cath and LFA 20g in place. Morphine Drip running @2mg/hr per Dr. order. Pt on comfort measures as this point of care. Pt's sons at bedside, refusing most medications at this time. Bed locked in lowest position, call light in reach, and safety precautions in place. Will continue to monitor.
[2018-09-19] MEDS: MORPHINE 2 MG/ML INJ. SYRINGE IVP PRN (22:46)
[2018-09-20] VITALS: BP_SYST 101
[2018-09-20] MEDS: DILTIAZEM HCL 60 MG TABLET PO SCH
--- NOTE | 2018-09-20 00:30 | NUR ---
RN Rounds Pt beginning to desaturate in the mid-high 60s. BP stable. Family at bedside made aware of situation. Comfort measures continuing to be implemented and offered. Will continue to monitor.
[2018-09-20 01:00] VITALS: BP_SYST 101
--- NOTE | 2018-09-20 01:00 | NUR ---
Pt status declining. Saturations in the mid-low 40s. HR beginning to drop. Family remains at bedside. Will continue to monitor.
[2018-09-20] MEDS ORDERED: KCL 20 mEq in D5/0.45NS 1000mL 1,000 ML IV ONE (01:07)
[2018-09-20 01:12] VITALS: BP_SYST 93
--- NOTE | 2018-09-20 01:15 | NUR ---
pronounced pt , agree with Sina CANALES's assessment, pt pronounced by both of us.
--- NOTE | 2018-09-20 01:15 | NUR ---
Pronunciation of Pt on DNR status. No pulse identified, no BP, no respirations, and no O2 saturation noted. [place] on the monitor. Confirmed with another set of leads. No heart/lung sounds heard. Pupils fixed in place. Pronounced @0115. Pt's two sons present at bedside.
--- NOTE | 2018-09-20 01:22 | NUR ---
notified with expiration, message left with exchange and spoke with Meg.
--- NOTE | 2018-09-20 01:35 | NUR ---
Produce Department Supervisor notified of . spoke to Slona and body released.
--- NOTE | 2018-09-20 01:43 | NUR ---
mortuary called, [facility] called as authorized by pt's son
--- NOTE | 2018-09-20 01:45 | NUR ---
[employer] notified of , spoke with Pooja . pt not a candidate for donation.case #R [id number].
--- NOTE | 2018-09-20 03:00 | NUR ---
Mortuary Pt body picked up by [facility].
== END 2018-09-20 01:15 | disposition expired | DRG 871 ==
LOC: SED 20:15 → SIC 23:06 → STU 09-12 15:30 → SIC 09-14 05:43
PROVIDERS: ADMIT Internal Medicine Hospice and Palliative Medicine; ATTEND Internal Medicine Hospice and Palliative Medicine
PROC: 30233N1 Transfusion of Nonautologous Red Blood Cells into Peripheral Vein, Percutaneous Approach (ICD-10-PCS; principal; 2018-09-13)
DX: A41.9 Sepsis, unspecified organism (principal); J18.9 Pneumonia, unspecified organism; R65.21 Severe sepsis with septic shock; E43 Unspecified severe protein-calorie malnutrition; J96.21 Acute and chronic respiratory failure with hypoxia; C34.90 Malignant neoplasm of unspecified part of unspecified bronchus or lung; J90 Pleural effusion, not elsewhere classified; J94.2 Hemothorax; E87.1 Hypo-osmolality and hyponatremia; J44.0 Chronic obstructive pulmonary disease with (acute) lower respiratory infection; C78.7 Secondary malignant neoplasm of liver and intrahepatic bile duct; E11.9 Type 2 diabetes mellitus without complications; E78.5 Hyperlipidemia, unspecified; E86.0 Dehydration; D64.9 Anemia, unspecified; Z66 Do not resuscitate; E78.00 Pure hypercholesterolemia, unspecified; I11.0 Hypertensive heart disease with heart failure; I50.9 Heart failure, unspecified; I48.0 Paroxysmal atrial fibrillation; Z51.5 Encounter for palliative care; J44.9 Chronic obstructive pulmonary disease, unspecified; W18.39XA Other fall on same level, initial encounter; Y93.89 Activity, other specified; Y92.89 Other specified places as the place of occurrence of the external cause; Y99.8 Other external cause status; Z79.899 Other long term (current) drug therapy; Z83.3 Family history of diabetes mellitus; Z68.30 Body mass index [BMI] 30.0-30.9, adult; Z85.118 Personal history of other malignant neoplasm of bronchus and lung; Z80.3 Family history of malignant neoplasm of breast; Z87.891 Personal history of nicotine dependence; Z99.81 Dependence on supplemental oxygen
CPT/HCPCS: 36415; 71045; 80053; 80202-TC; 81000-TC; 82150-TC; 82550-TC; 82803-TC; 82962; 83605; 83690-TC; 83735-TC; 83880; 84132-TC; 84484; 85007; 85025; 85027; 85610-TC; 85730-TC; 86886; 86900; 86901; 86920; 87040-TC; 87081; 87086; 93005; 93306; 94640; 94760; 96365; 96367; 96375; 99291; A6261; G0378; J0282; J0295; J1100; J1160; J1650; J1720; J1940; J2270; J2543; J3370; J3475; J3480; J3490; J7030; J7050; J7060; J7613; J7614; P9021